=== PATIENT | male | born 1935 | race Caucasian/White ===

== ENCOUNTER 2019-03-20 16:49 | Inpatient (IN) | payer MEDICARE, SELFPAY ==
[2019-03-20 17:16] LABS: #Lymphocytes 0.6 thou/uL (1.20-3.40); #Monocytes 0.7 thou/uL (0.11-0.59); #Neutrophils 8.9 thou/uL (1.40-6.50); %Basophils 0.1 % (0.0-1.0); %Eosinophils 0.1 % (0.0-10.0); %Monocytes 6.9 % (0.0-10.0); %Neutrophils 86.9 % (42.0-75.0); Hemoglobin 13.1 g/dL (14.0-18.0); Mean Corpuscular Hemoglobin 34.4 pg (27.0-31.0); Mean Platelet Volume 7.2 fL (7.4-10.4); Platelet Count 197 thou/uL (130-400); RBC Distribution Width 13.8 % (11.5-14.5); White Blood Cell (WBC) Count 10.2 thou/uL (4.8-10.8)
[2019-03-20 17:38] LABS: ALT (SGPT) 8 U/L (8-55); AST (SGOT) 25 U/L (5-34); Albumin 3.9 g/dL (3.4-4.8); Alkaline Phosphatase 54 U/L (40-150); Anion Gap 16 mmol/L (10-20); BUN (Urea Nitrogen) 22 mg/dL (8.4-25.7); Bilirubin, Total 0.5 mg/dL (0.2-1.2); Calc. Creatinine Clearance 0 mL/min (70-130); Calcium 9.9 mg/dL (7.8-10.44); Carbon Dioxide 24 mmol/L (23-31); Chloride 103 mmol/L (98-107); Estimated GFR-MDRD 67; Globulin 3.2 g/dL (2.4-3.5); Glucose 154 mg/dL (83-110); Potassium 4.9 mmol/L (3.5-5.1); Protein, Total 7.1 g/dL (5.8-8.1); Sodium 138 mmol/L (136-145)
--- NOTE | 2019-03-20 17:51 | CT ---
BRAIN CT WITHOUT IV CONTRAST: History: Injury from a fall. FINDINGS: Minimal soft tissue swelling over the right frontal bone. There is some bilateral atrophy and chronic white matter ischemic change. No focal mass or midline shift. No intra or extraaxial hemorrhage. Radha y minimal sinus mucosal changes in the ethmoid sinus. The mastoids are clear. IMPRESSION: Minimal right frontal scalp swelling. Atrophy and chronic white matter ischemic change without mass, hemorrhage, or other acute process. POS: H
--- NOTE | 2019-03-20 17:59 | CT ---
CT CERVICAL SPINE WITHOUT CONTRAST: History: Fall. Pain. FINDINGS: No craniocervical disassociation. Appropriate alignment of the lateral masses of C1 and C2. Intact odontoid process. Visualized soft tissue neck structures, upper mediastinum and lung apices are unremarkable. Dependent atelectatic changes in the lung apices is noted. Varying degrees of central canal stenosis and neural foraminal narrowing on the basis of degenerative change. Limited evaluation due to technique. No prevertebral soft tissue swelling. Grade I anterolisthesis of C4 upon C5 likely due to degenerative change. Moderate to severe loss of d isc space height at C5-6 and C6-7. Grade I anterolisthesis at C7 upon T1, also felt to be degenerativ e change. Cervical spine vertebral body height is maintained. No fracture. IMPRESSION: 1. No fracture. 2. Spondylolisthesis and degenerative changes of the cervical spine. Evaluation is limited by techniq ue. POS: PPP
--- NOTE | 2019-03-20 18:11 | CT ---
FACIAL BONE CT SCAN WITHOUT IV CONTRAST: History: Injury from a fall. FINDINGS: There is some focal soft tissue swelling over the right frontal region of the skull. Sinus mucosal ch anges with a mucous retention cyst in the right maxillary sinus. No evidence for acute facial bone fr acture. Zygomatic arches are intact. The mandible is unremarkable. The orbits appear unremarkable. IMPRESSION: Scalp swelling over the right frontal bone. No acute facial bone fracture. Sinus mucosal changes. POS: ESTUARDO
[2019-03-20] MEDS ORDERED: Bacitracin 1 PK ONE ×2 (18:29→23:42)
[2019-03-20 20:59] LABS: Bilirubin Negative (Negative); Blood, Urine Negative (Negative); Clarity Clear (Clear); Glucose, Urine (Dipstick) Normal (Negative); Leukocyte Negative Leu/uL (Negative); Nitrite Negative (Negative); Protein, Urine (Dipstick) Negative (Neg-Trace); Urobilinogen Normal mg/dL (Less than 2)
[2019-03-20] MEDS ORDERED: Senokot S 8.6-50 MG TAB PO PRN (23:48)
--- NOTE | 2019-03-21 03:02 | HP ---
PRIMARY CARE PHYSICIAN: Dr. Orosco in [place]. CHIEF COMPLAINT: Fall. HISTORY OF PRESENT ILLNESS: Mr. Boucher is a very pleasant 84-year-old male, who reports that he was going to take a shower this morning, went into the bathroom, sat down on the toilet, when he leaned over, fell forward and struck his head on the floor. He denies any loss of consciousness, but reports that he could not get up. Reports that his family, his and his daughter, were at a birthday constitution party and were gone several hours. Daughter believes that he was probably on the bathroom floor for about an hour or hour and a half before they found him. He came in to the emergency room complaining of frontal headache, hematoma to the forehead, and some skin tears on his left hand. He denies any syncope. Denies any back pain or neck pain. The patient does report during exam today that he has been dizzy for the last several days. Daughter reports that he should be using either a walker or a cane when he ambulates, but most of the time refuses to do this and gets around by leaning on furniture. The patient has a past medical history of diabetes and asthma. Daughter says that he has been taking medicine for Parkinson's because their primary care doctor noticed he had a tremor. She believes that they have helped him. She showed me a long list of medications, none of which are in the emergency room record. PAST SURGICAL HISTORY: CABG x3, tonsillectomy, had a valve replaced at the same time as his CABG. 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 PSYCHIATRIC HISTORY: None. SOCIAL HISTORY: Lives with his and daughter. Has home health, who comes in twice a week. Denies any drug, alcohol or smoking history. ALLERGIES: NONE. DAUGHTER REPORTS THAT SHE CANNOT LIFT HIM AND NEEDS HELP FOR HIM AROUND THE HOUSE. SHE SAYS THAT SHE IS UNABLE TO GET A WHEELCHAIR AT THIS TIME OF THE NIGHT ON A THURSDAY. [place]. REPORTS THAT SHE IS OPEN TO HOME HEALTH WITH OUTPATIENT PHYSICAL THERAPY AND REHAB. EMERGENCY ROOM DID CALL THE REHAB AND THEY CAME OVER AND DID EVALUATION, BUT DUE TO INSURANCE, THEY WOULD HAVE TO PROCESS THAT BEFORE THEY COULD TAKE HIM OVER THERE. HE WILL BE ADMITTED TO THE MEDICAL FLOOR FOR FURTHER EVALUATION. REVIEW OF SYSTEMS: Reports a fall injury. Reports a contusion to his right forehead. Reports a skin tear to his left hand. Reports dizziness. Denies any syncope. Reports a mechanical fall. Reports that he has had trouble with balance for quite some time. All other systems reviewed and are negative unless mentioned in the HPI. PHYSICAL EXAMINATION: VITAL SIGNS: Blood pressure is 156/75, pulse is 90, respirations are 22, and temp is 98. CONSTITUTIONAL: The patient appears pain free. He is alert and oriented to person, place, and time. HEENT: Head; there is a hematoma and abrasion to the right side of his forehead. Eyes; eyelids are normal to inspection. Pupils are equally round and reactive to light. ENT; mucous membranes are moist. Mouth exam is normal. NECK: Normal range of motion. Trachea is midline. RESPIRATORY/CHEST: Breath sounds are clear. He has a midsternal surgical scar. Multiple bruises of various ages. CARDIOVASCULAR: Regular heart rate and rhythm. Heart sounds are normal. ABDOMEN: Nontender. Bowel sounds are heard. BACK: Normal inspection. Normal range of motion. EXTREMITIES: Upper extremity, multiple bruises of various ages in bilateral upper extremities. Radial pulses equal bilaterally. Normal range of motion. Motor strength is normal. Sensation is intact. Radial pulses are normal. Lower extremities, normal range of motion. Motor strength is normal. Pedal pulses are equal bilaterally. NEUROLOGIC: The patient is oriented to person, place, and time. Speech is normal. PERTINENT LABS: Urine is positive for ketones. Comp met panel is unremarkable. Glucose of 154. Lactic acid is 1.4. White blood cell count is 10.2, hemoglobin is 13.1, hematocrit is 39.7, and platelet count is 197. He had a facial bone CT, which showed scalp swelling over the right frontal bone. Otherwise, no facial bone fracture. Brain CT shows minimal right frontal scalp swelling, atrophy and chronic white matter ischemic change without mass, hemorrhage or other process. EKG in the emergency room shows normal sinus rhythm, beats per minute 87, has a prolonged QT 410-493. PLAN/ASSESSMENT: 1. Dizziness with some imbalance. The patient denies ever having an echocardiogram since his CABG or a carotid Doppler. We will order both. We will also order orthostatics with vital signs. PT/OT and rehab screening has also been entered. 2. Hypertension. We will trend. Restart home medications. 3. Diabetes type 2. We will order Accu-Cheks a.c. and at bedtime, order sliding scale insulin for coverage. 4. Tremor. We will restart home medications. 5. Deep venous thrombosis and gastrointestinal prophylaxis have been started. 6. Case discussed with Dr. Cerrato, who agrees with plan. Job ID: [id number]
[2019-03-21 04:37] LABS: #Lymphocytes 0.8 thou/uL (1.20-3.40); #Monocytes 0.9 thou/uL (0.11-0.59); #Neutrophils 7.3 thou/uL (1.40-6.50); %Eosinophils 0.5 % (0.0-10.0); %Lymphocytes 9.2 % (21.0-51.0); %Monocytes 9.6 % (0.0-10.0); %Neutrophils 80.8 % (42.0-75.0); Hemoglobin 12.1 g/dL (14.0-18.0); Mean Corpuscular Hemoglobin 35.4 pg (27.0-31.0); Mean Platelet Volume 7.3 fL (7.4-10.4); Platelet Count 180 thou/uL (130-400); RBC Distribution Width 13.9 % (11.5-14.5); Red Blood Cell (RBC) Count 3.42 mill/uL (4.70-6.10)
[2019-03-21 04:56] LABS: Anion Gap 13 mmol/L (10-20); BUN (Urea Nitrogen) 19 mg/dL (8.4-25.7); Calc. Creatinine Clearance 0 mL/min (70-130); Calcium 9.4 mg/dL (7.8-10.44); Carbon Dioxide 28 mmol/L (23-31); Chloride 106 mmol/L (98-107); Estimated GFR-MDRD 74; Glucose 124 mg/dL (83-110); Potassium 3.7 mmol/L (3.5-5.1); Sodium 143 mmol/L (136-145)
[2019-03-21 07:52] LABS: Magnesium 2.1 mg/dL (1.6-2.6)
--- NOTE | 2019-03-21 08:35 | ULT ---
CAROTID ULTRASOUND WITH ABARCA SCALE AND DOPPLER DUPLEX COLOR FLOW IMAGING SPECTRAL ANALYSIS PERFORMED: CLINICAL INDICATION: Dizziness. FINDINGS: Scattered plaque is moderate in degree of the carotid arteries. PEAK SYSTOLIC VELOCITY (CM/S): Right CCA 93 Left CCA 100 Right ICA 82 Left ICA 163 There is antegrade flow within the visualized bilateral vertebral arteries. IMPRESSION: 1. No hemodynamically significant stenosis of the right internal carotid artery. 2. Moderate 50-69% stenosis of the left internal carotid artery. POS: RIZWANA
[2019-03-21] MEDS ORDERED: Famotidine 20 MG TAB ONE (09:26)
[2019-03-21] MEDS ORDERED: Enoxaparin Sodium 40 MG/0.4 ML SYRINGE ONE (09:26)
[2019-03-21] MEDS: Enoxaparin Sodium 40 MG/0.4 ML SYRINGE SC SCH (09:27)
[2019-03-21] MEDS: Famotidine 20 MG TAB PO SCH ×2 (09:32→20:01)
[2019-03-21] MEDS ORDERED: Dextrose 5% in Water 1,000 ML IV PRN (09:55)
[2019-03-21] MEDS ORDERED: HumaLOG 300 UNITS/3 ML VIAL SC PRN ×2 (09:55)
[2019-03-21] MEDS ORDERED: Dextrose 50% Abboject 50 ML SYRINGE SLOW IVP PRN (09:55)
--- NOTE | 2019-03-21 10:06 | PDOC.HOSPP ---
- Subjective Subjective: Patient without any complaints at present. States he is concerned about his insulin and that his daughter will be here to administer it. He is unsure of what other medications he is on and states his daughter has his medication list. No headaches. Denies any n/v. Has not had any chest pain or sob. Feels well in himself. Daughter is not at bedside currently. - Objective Result Diagrams: 03/22/19 05:31 03/22/19 05:31 ROS - Review of Systems All systems: All other ROS were reviewed and found negative. Constitutional: denies: fever, chills, sweats, weakness, malaise Eyes: denies: pain, vision change, conjunctivae inflammation, eyelid inflammation, redness ENT: denies: ear pain, ear discharge, nose pain, nose discharge, nose congestion , mouth pain, mouth swelling, throat pain, throat swelling Respiratory: denies: cough, dry, shortness of breath, hemoptysis, SOB with excertion, pleuritic pain, sputum, wheezing Cardiovascular: denies: chest pain, palpitations, orthopnea, paroxysmal noc. dyspnea, edema, light headedness Gastrointestinal: denies: nausea, vomitting, abdominal pain, diarrhea, constipation, melena, hematochezia Genitourinary: reports: frequency (long standing) Musculoskeletal: denies: neck pain, shoulder pain, arm pain, back pain, hand pain, leg pain, foot pain Skin: denies: rash, lesions, bruising Neurological: denies: weakness, numbness, incoordination, change in speech, confusion, seizures - Medication Medications: Active Medications Generic Name Dose Route Start Last Admin Trade Name Rose PRN Reason Stop Dose Admin Enoxaparin Sodium 40 mg 03/21/19 09:00 03/21/19 09:27 Lovenox SC 40 mg 0900 LUCRECIA Administration Famotidine 20 mg 03/21/19 09:00 03/21/19 09:32 Pepcid PO 20 mg BID LUCRECIA Administration - Exam awake alert (Abrasion/hematoma to right forehead) Eye: PERRL, anicteric sclera ENT: no oropharyngeal lesions, moist mucosa Neck: supple, symmetric Heart: RRR, no murmur Respiratory: CTAB, no wheezes, no rales, no ronchi, normal chest expansion, no tachypnea Gastrointestinal: soft, non-tender, non-distended, normal bowel sounds, no palpable masses Extremities: no cyanosis, no clubbing, no edema Neurological: normal sensation to touch, no weakness, no focal deficits Musculoskeletal: normal tone, normal strength Psychiatric: normal affect (Difficulty recalling date and year. Some difficulty finding words on occasion. Unclear if this is his baseline.) Hosp A/P (1) Head injury Code(s): S09.90XA - UNSPECIFIED INJURY OF HEAD, INITIAL ENCOUNTER Status: Acute Plan: CT head, facial bones and neck without acute abnormalities. Superficial abrasion to forehead, treated by ED nurses. (2) Fall Code(s): W19.XXXA - UNSPECIFIED FALL, INITIAL ENCOUNTER Status: Acute Plan: Per patient no preceding symptoms. Does not recall what he was reaching for. Unclear if there is underlying dementia. Denies LOC. Carotid US: 50-69% Left ICA stenosis. UA negative. Awaiting Orthostatic BPs and Echo. PT/OT and rehab screening requested. (3) Diabetes mellitus Code(s): E11.9 - TYPE 2 DIABETES MELLITUS WITHOUT COMPLICATIONS Status: Chronic Plan: Per patient he is on insulin. Does not know the dose or what type. His daughter has a list of his medications, shown to PA last night however not entered/reconciled. I have initiated an ISS. I left a voicemail for her daughter to review his meds so that I can enter them into his chart and resume home meds. (4) Hypertension Code(s): I10 - ESSENTIAL (PRIMARY) HYPERTENSION Status: Chronic Qualifiers: Hypertension type: essential hypertension Qualified Code(s): I10 - Essential (primary) hypertension Plan: BP 180s systolic. No home meds documented. Continue Hydralazine prn until med list obtained. - Plan old records reviewed/req, PT/OT
[2019-03-21] MEDS: Acetaminophen 325 MG TAB PO PRN (20:01)
[2019-03-21] MEDS ORDERED: Prevnar 13-Val Conj/PF 0.5 ML SYRINGE IM ONE (21:00)
[2019-03-22] MEDS: Melatonin 3 MG TAB PO PRN ×2 (00:07→20:19)
[2019-03-22] MEDS: hydrALAZINE 20 MG/ML VIAL SLOW IVP PRN ×3 (00:16→18:44)
[2019-03-22 05:57] LABS: #Basophils 0.1 thou/uL (0.0-0.2); #Eosinphils 0.1 thou/uL (0.0-0.7); #Lymphocytes 1.3 thou/uL (1.20-3.40); #Monocytes 0.6 thou/uL (0.11-0.59); #Neutrophils 5.8 thou/uL (1.40-6.50); %Basophils 0.8 % (0.0-1.0); %Eosinophils 1.5 % (0.0-10.0); %Lymphocytes 16.6 % (21.0-51.0); %Monocytes 7.7 % (0.0-10.0); %Neutrophils 73.4 % (42.0-75.0); Hemoglobin 12.6 g/dL (14.0-18.0); Mean Corpuscular HGB CONC 32.3 g/dL (32.0-36.0); Mean Corpuscular Hemoglobin 33.6 pg (27.0-31.0); Mean Platelet Volume 7.3 fL (7.4-10.4); Platelet Count 191 thou/uL (130-400); RBC Distribution Width 13.9 % (11.5-14.5); Red Blood Cell (RBC) Count 3.74 mill/uL (4.70-6.10); White Blood Cell (WBC) Count 7.9 thou/uL (4.8-10.8)
[2019-03-22 06:19] LABS: Anion Gap 12 mmol/L (10-20); BUN (Urea Nitrogen) 19 mg/dL (8.4-25.7); Calc. Creatinine Clearance 57 mL/min (70-130); Calcium 9.3 mg/dL (7.8-10.44); Carbon Dioxide 26 mmol/L (23-31); Chloride 106 mmol/L (98-107); Estimated GFR-MDRD 67; Glucose 107 mg/dL (83-110); Potassium 3.4 mmol/L (3.5-5.1); Sodium 141 mmol/L (136-145)
[2019-03-22] MEDS: Aspirin 325 MG TAB PO SCH ×2 (09:43→20:19)
[2019-03-22] MEDS: Calcium Carbonate + Vit D 1 TAB PO SCH (09:44)
[2019-03-22] MEDS: Carbidopa/Levodopa 10-100 mg Tablet PO SCH ×4 (09:44→20:18)
[2019-03-22] MEDS: Ezetimibe 10 MG TAB PO SCH (09:44)
[2019-03-22] MEDS: metFORMIN 500 MG TAB PO SCH ×2 (09:45→18:29)
[2019-03-22] MEDS: Finasteride 5 MG TAB PO SCH (09:45)
[2019-03-22] MEDS: Enoxaparin Sodium 40 MG/0.4 ML SYRINGE SC SCH (09:46)
[2019-03-22] MEDS: Atorvastatin Calcium 20 MG TAB PO SCH (09:46)
[2019-03-22] MEDS: predniSONE 5 MG TAB PO SCH ×2 (09:46→18:29)
[2019-03-22] MEDS: Famotidine 20 MG TAB PO SCH ×2 (11:39→20:19)
[2019-03-22] MEDS: Sodium Chloride 0.45% 1,000 ML IV SCH (12:43)
[2019-03-22] MEDS ORDERED: Meclizine HCl 12.5 MG TAB PO PRN (13:21)
--- NOTE | 2019-03-22 14:01 | PDOC.HOSPP ---
- Subjective Subjective: Patient states he has been feeling dizzy since last night. Describes a "spinning" sensation. Has not been walking, per RN has been unsteady with transfer to bedside commode Patient normally walks with help of furniture at home as he refuses to use cane , as per initial H&P. Unable to reach daughter in order to confirm baseline (cognition and activity). Reports nausea this morning. No vomiting. Denies any pain. S/p Echo: 55-60%, mild MR and mild RT Carotid US: Left ICA notable for 50-69% stenosis, per Dr. King no indication for CVS review. - Objective Vital Signs & Weight: Vital Signs (12 hours) Temp Pulse Resp BP BP BP BP 03/22/19 12:21 98.1 F 70 18 03/22/19 09:25 178/94 H 03/22/19 08:12 98.4 F 76 18 03/22/19 05:00 166/91 H 03/22/19 04:06 79 192/77 H 03/22/19 04:00 97.9 F 79 18 192/77 H 164/87 H BP Pulse Ox 03/22/19 12:21 145/90 H 95 03/22/19 09:25 03/22/19 08:12 164/84 H 95 03/22/19 05:00 03/22/19 04:06 03/22/19 04:00 182/79 H 95 Weight Weight 168 lb 9.6 oz I&O: 03/21/19 03/22/19 03/23/19 06:59 06:59 06:59 Intake Total 350 Output Total 500 Balance -150 Result Diagrams: 03/22/19 05:31 03/22/19 05:31 Additional Labs: Accuchecks 03/22/19 03/22/19 03/22/19 11:30 09:57 05:12 POC Glucose 121 H 131 H 100 03/21/19 03/21/19 20:25 17:58 POC Glucose 187 H 107 ROS - Review of Systems All systems: All other ROS were reviewed and found negative. Constitutional: denies: fever, chills, sweats, weakness, malaise, other Eyes: denies: pain, vision change, conjunctivae inflammation, eyelid inflammation, redness, other ENT: denies: ear pain, ear discharge, nose pain, nose discharge, nose congestion , mouth pain, mouth swelling, throat pain, throat swelling, other Respiratory: denies: cough, dry, shortness of breath, hemoptysis, SOB with excertion, pleuritic pain, sputum, wheezing, other Cardiovascular: reports: light headedness, other (Dizziness). denies: chest pain, palpitations, orthopnea, paroxysmal noc. dyspnea, edema Gastrointestinal: reports: nausea Genitourinary: denies: dysuria, frequency, incontinence, hematuria, retention, other Musculoskeletal: denies: neck pain, shoulder pain, arm pain, back pain, hand pain, leg pain, foot pain, other Skin: denies: rash, lesions, george, bruising, other Neurological: reports: incoordination - Medication Medications: Active Medications Generic Name Dose Route Start Last Admin Trade Name Freq PRN Reason Stop Dose Admin Acetaminophen 650 mg 03/20/19 23:48 03/21/19 20:01 Tylenol PO 650 mg Q4H PRN Administration Headache/Fever/Mild Pain (1-3) Aspirin 325 mg 03/22/19 09:00 03/22/19 09:43 Aspirin PO 325 mg BID LUCRECIA Administration Atorvastatin Calcium 20 mg 03/22/19 09:00 03/22/19 09:46 Lipitor PO 20 mg DAILY LUCRECIA Administration Calcium/Vitamin D 1 tab 03/22/19 09:00 03/22/19 09:44 Caltrate 600 + Vit D PO 1 tab DAILY LUCRECIA Administration Carbidopa/Levodopa 1 tab 03/22/19 09:00 03/22/19 09:44 Sinemet 10/100 PO 1 tab QID LUCRECIA Administration Ezetimibe 10 mg 03/22/19 09:00 03/22/19 09:44 Zetia PO 10 mg DAILY LUCRECIA Administration Enoxaparin Sodium 40 mg 03/21/19 09:00 03/22/19 09:46 Lovenox SC 40 mg 0900 LUCRECIA Administration Famotidine 20 mg 03/21/19 09:00 03/22/19 11:39 Pepcid PO Not Given BID LUCRECIA Finasteride 5 mg 03/22/19 09:00 03/22/19 09:45 Proscar PO 5 mg DAILY LUCRECIA Administration Hydralazine HCl 10 mg 03/21/19 09:40 03/22/19 04:06 Apresoline SLOW IVP 10 mg Q4H PRN Administration SBP Greater Than 180 Sodium Chloride 1,000 mls @ 50 mls/hr 03/22/19 07:45 03/22/19 12:43 1/2 Normal Saline IV 1,000 mls .Q20H LUCRECIA Administration Melatonin 6 mg 03/21/19 23:54 03/22/19 00:07 Melatonin PO 6 mg HSPRN PRN Administration Insomnia Metformin HCl 1,000 mg 03/22/19 08:00 03/22/19 09:45 Glucophage PO 1,000 mg BID-WM LUCRECIA Administration Prednisone 5 mg 03/22/19 08:00 03/22/19 09:46 Prednisone PO 5 mg BID-WM LUCRECIA Administration - Exam NAD, awake alert Eye: PERRL (EOM intact, no nystagmus), anicteric sclera Neck: supple, symmetric, no JVD, no Thyromegaly, no lymphadenopathy Heart: RRR, no murmur, no gallops, no rubs, normal peripheral pulses Respiratory: CTAB, no wheezes, no rales, no ronchi, normal chest expansion, no tachypnea, normal percussion Gastrointestinal: soft, non-tender, non-distended, normal bowel sounds, no palpable masses Extremities: no cyanosis, no clubbing, no edema. negative: 1+ LE edema, 2+ LE edema, clubbing Skin: normal turgor, no lesions, no rashes Neurological: CN's grossly intact, normal sensation to touch, no weakness, no focal deficits, no new deficit Musculoskeletal: normal tone, normal strength Psychiatric: normal affect, oriented to person, oriented to place Hosp A/P (1) Head injury Code(s): S09.90XA - UNSPECIFIED INJURY OF HEAD, INITIAL ENCOUNTER Status: Acute (2) Fall Code(s): W19.XXXA - UNSPECIFIED FALL, INITIAL ENCOUNTER Status: Acute Plan: Has developed dizziness which is new since last night. CT Brain negative. It was unclear if patient has general deconditioning, or if he is at baseline or acutely deteriorated from baseline. I left a voicemail for his daughter. Will obtain MRI brain. Patient s/p rehab screening. Remains unsteady on his feet. Will try Meclizine for dizziness/nausea. Repeat Orthostatic BPs. (3) Diabetes mellitus Code(s): E11.9 - TYPE 2 DIABETES MELLITUS WITHOUT COMPLICATIONS Status: Chronic (4) Hypertension Code(s): I10 - ESSENTIAL (PRIMARY) HYPERTENSION Status: Chronic Qualifiers: Hypertension type: essential hypertension Qualified Code(s): I10 - Essential (primary) hypertension Plan: Medications confirmed and no antihypertensives mentioned. RN will re-confirm with daughter, as patient with elevated BP 190s systolic. Continue to monitor BP and continue hydralazine PRN. - Plan PT/OT, DVT proph w/SCDs Will discuss further with Dr. Aguirre. Received a call from EHR stating patient qualifies for inpatient status.
--- NOTE | 2019-03-22 15:18 | MRI ---
MRI BRAIN WITHOUT CONTRAST: Date: 03/22/19 INDICATION: Mental status change. Dizziness. FINDINGS: Mild to moderate cortical volume loss. Moderate to severe chronic ischemic white matter change noted on FLAIR sequence. No evidence of restricted diffusion. There is no evidence of infarct. No evidence of mass or edema. Intracranial internal carotid arteries and cerebral arteries show expected flow-voids. Mucosal retention cyst in the right maxillary sinus measures up to 2.0 cm. IMPRESSION: Moderate cortical volume loss. Moderate to severe chronic ischemic white matter change. No acute proc ess identified. POS: SILVIA
[2019-03-22] MEDS: Mirtazapine 15 MG TAB PO SCH (20:19)
[2019-03-23] MEDS: Acetaminophen 325 MG TAB PO PRN (04:37)
[2019-03-23 07:05] LABS: #Eosinphils 0.1 thou/uL (0.0-0.7); #Lymphocytes 0.8 thou/uL (1.20-3.40); #Monocytes 0.6 thou/uL (0.11-0.59); #Neutrophils 6.5 thou/uL (1.40-6.50); %Basophils 0.2 % (0.0-1.0); %Eosinophils 0.9 % (0.0-10.0); %Lymphocytes 10.1 % (21.0-51.0); %Monocytes 7.5 % (0.0-10.0); %Neutrophils 81.3 % (42.0-75.0); Hemoglobin 11.9 g/dL (14.0-18.0); Mean Corpuscular HGB CONC 33.8 g/dL (32.0-36.0); Mean Corpuscular Hemoglobin 34.2 pg (27.0-31.0); Mean Platelet Volume 7.4 fL (7.4-10.4); Platelet Count 179 thou/uL (130-400); RBC Distribution Width 13.5 % (11.5-14.5); Red Blood Cell (RBC) Count 3.46 mill/uL (4.70-6.10)
[2019-03-23 07:26] LABS: Anion Gap 11 mmol/L (10-20); BUN (Urea Nitrogen) 14 mg/dL (8.4-25.7); Calc. Creatinine Clearance 66 mL/min (70-130); Calcium 9.1 mg/dL (7.8-10.44); Carbon Dioxide 26 mmol/L (23-31); Chloride 102 mmol/L (98-107); Estimated GFR-MDRD 80; Glucose 129 mg/dL (83-110); Potassium 3.4 mmol/L (3.5-5.1); Sodium 136 mmol/L (136-145)
[2019-03-23] MEDS: Carbidopa/Levodopa 10-100 mg Tablet PO SCH ×4 (08:19→19:44)
[2019-03-23] MEDS: predniSONE 5 MG TAB PO SCH ×2 (08:19→18:20)
[2019-03-23] MEDS: metFORMIN 500 MG TAB PO SCH ×2 (08:19→18:20)
[2019-03-23] MEDS: Aspirin 325 MG TAB PO SCH ×2 (08:19→19:44)
[2019-03-23] MEDS: Calcium Carbonate + Vit D 1 TAB PO SCH (08:19)
[2019-03-23] MEDS: Atorvastatin Calcium 20 MG TAB PO SCH (08:20)
[2019-03-23] MEDS: Amlodipine 5 MG TAB PO SCH (08:20)
[2019-03-23] MEDS: Ezetimibe 10 MG TAB PO SCH (08:26)
[2019-03-23] MEDS: Famotidine 20 MG TAB PO SCH ×2 (08:26→19:45)
[2019-03-23] MEDS: Finasteride 5 MG TAB PO SCH (08:26)
[2019-03-23] MEDS: Enoxaparin Sodium 40 MG/0.4 ML SYRINGE SC SCH (08:26)
[2019-03-23] MEDS ORDERED: Ziprasidone 20 MG VIAL IM PRN (08:51)
--- NOTE | 2019-03-23 08:53 | PDOC.HOSPP ---
- Subjective Subjective: Patient seen and examined. No overnight events pt is agitated, restless and pulling out IV - Objective Vital Signs & Weight: Vital Signs (12 hours) Temp Pulse Resp BP BP BP BP 03/23/19 08:20 109 H 138/80 03/23/19 07:35 97.7 F 81 22 H 198/73 H 03/23/19 03:30 98.1 F 82 18 135/66 170/86 H 164/92 H BP Pulse Ox 03/23/19 08:20 03/23/19 07:35 96 03/23/19 03:30 165/92 H 96 Weight Weight 168 lb 9.6 oz I&O: 03/22/19 03/23/19 03/24/19 06:59 06:59 06:59 Intake Total 350 950 Output Total 500 500 Balance -150 450 Result Diagrams: 03/23/19 06:14 03/23/19 06:14 Additional Labs: Accuchecks 03/23/19 03/22/19 03/22/19 04:53 20:03 16:59 POC Glucose 132 H 128 H 127 H 03/22/19 03/22/19 11:30 09:57 POC Glucose 121 H 131 H Radiology Reviewed by me: Yes ROS - Review of Systems ROS unobtainable: due to mental status All systems: All other ROS were reviewed and found negative. - Medication Medications: Active Medications Generic Name Dose Route Start Last Admin Trade Name Freq PRN Reason Stop Dose Admin Acetaminophen 650 mg 03/20/19 23:48 03/23/19 04:37 Tylenol PO 650 mg Q4H PRN Administration Headache/Fever/Mild Pain (1-3) Amlodipine Besylate 5 mg 03/23/19 09:00 03/23/19 08:20 Norvasc PO 5 mg DAILY LUCRECIA Administration Aspirin 325 mg 03/22/19 09:00 03/23/19 08:19 Aspirin PO 325 mg BID LUCRECIA Administration Atorvastatin Calcium 20 mg 03/22/19 09:00 03/23/19 08:20 Lipitor PO 20 mg DAILY LUCRECIA Administration Calcium/Vitamin D 1 tab 03/22/19 09:00 03/23/19 08:19 Caltrate 600 + Vit D PO 1 tab DAILY LUCRECIA Administration Carbidopa/Levodopa 1 tab 03/22/19 09:00 03/23/19 08:19 Sinemet 10/100 PO 1 tab QID LUCRECIA Administration Ezetimibe 10 mg 03/22/19 09:00 03/23/19 08:26 Zetia PO 10 mg DAILY LUCRECIA Administration Enoxaparin Sodium 40 mg 03/21/19 09:00 03/23/19 08:26 Lovenox SC 40 mg 0900 LUCRECIA Administration Famotidine 20 mg 03/21/19 09:00 03/23/19 08:26 Pepcid PO 20 mg BID LUCRECIA Administration Finasteride 5 mg 03/22/19 09:00 03/23/19 08:26 Proscar PO 5 mg DAILY LUCRECIA Administration Hydralazine HCl 10 mg 03/21/19 09:40 03/22/19 18:44 Apresoline SLOW IVP 10 mg Q4H PRN Administration SBP Greater Than 180 Sodium Chloride 1,000 mls @ 50 mls/hr 03/22/19 07:45 03/22/19 12:43 1/2 Normal Saline IV 1,000 mls .Q20H LUCRECIA Administration Melatonin 6 mg 03/21/19 23:54 03/22/19 20:19 Melatonin PO 6 mg HSPRN PRN Administration Insomnia Metformin HCl 1,000 mg 03/22/19 08:00 03/23/19 08:19 Glucophage PO 1,000 mg BID-WM LUCRECIA Administration Mirtazapine 30 mg 03/22/19 21:00 03/22/19 20:19 Remeron PO 30 mg HS LUCRECIA Administration Prednisone 5 mg 03/22/19 08:00 03/23/19 08:19 Prednisone PO 5 mg BID-WM LUCRECIA Administration - Exam NAD, awake alert Eye: PERRL, anicteric sclera ENT: normocephalic atraumatic, no oropharyngeal lesions Neck: supple, symmetric, no JVD Heart: RRR, no murmur, no gallops Respiratory: CTAB, no wheezes, no rales, no ronchi Gastrointestinal: soft, non-tender, non-distended, normal bowel sounds Extremities: no cyanosis, no clubbing, no edema Skin: normal turgor, no lesions Neurological: no focal deficits Musculoskeletal: normal tone, normal strength Psychiatric: normal affect Hosp A/P (1) Encephalopathy acute Code(s): G93.40 - ENCEPHALOPATHY, UNSPECIFIED Status: Acute (2) Fall Code(s): W19.XXXA - UNSPECIFIED FALL, INITIAL ENCOUNTER Status: Acute (3) Head injury Code(s): S09.90XA - UNSPECIFIED INJURY OF HEAD, INITIAL ENCOUNTER Status: Acute (4) Diabetes mellitus Code(s): E11.9 - TYPE 2 DIABETES MELLITUS WITHOUT COMPLICATIONS Status: Chronic (5) Hypertension Code(s): I10 - ESSENTIAL (PRIMARY) HYPERTENSION Status: Chronic Qualifiers: Hypertension type: essential hypertension Qualified Code(s): I10 - Essential (primary) hypertension (6) Macrocytic anemia Code(s): D53.9 - NUTRITIONAL ANEMIA, UNSPECIFIED Status: Acute (7) Hypokalemia Code(s): E87.6 - HYPOKALEMIA Status: Acute - Plan old records reviewed/req, PT/OT, hospice social worker will check B12, folate, ammonia, RPR consult neurology for evaluation add Geodon as needed for agitation medication reviewed as above symptomatic treatment PT/OT and may need placement Home medication reconciled replace potassium
[2019-03-23] MEDS ORDERED: HYDROcodone/Acetaminophen 5/325 mg Tablet PO PRN (08:54)
[2019-03-23] MEDS ORDERED: Ondansetron PF 4 MG/2 ML Vial IVP PRN (08:54)
[2019-03-23] MEDS ORDERED: Bisacodyl 10 MG SUPP PR PRN (08:54)
[2019-03-23] MEDS ORDERED: Sodium Chloride 0.65% Nasal 44 ML BOT EA NARE PRN (08:54)
[2019-03-23] MEDS ORDERED: Ondansetron ODT 4 MG TAB SL PRN (08:54)
[2019-03-23] MEDS ORDERED: Acetaminophen 500 MG TAB PO PRN (08:54)
[2019-03-23] MEDS ORDERED: Temazepam 15 MG CAP PO PRN (08:54)
[2019-03-23] MEDS ORDERED: Artificial Tears 18 DROP/0.9 ML EA EYE PRN (08:54)
[2019-03-23] MEDS ORDERED: Diabetic Tussin 200 MG/10 ML UDCUP PO PRN (08:54)
[2019-03-23] MEDS ORDERED: Cepastat Lozenges 1 LOZ PO PRN (08:54)
[2019-03-23] MEDS ORDERED: Loratadine 10 MG TAB PO PRN (08:54)
[2019-03-23] MEDS ORDERED: Loperamide HCl 2 MG CAP PO PRN (08:54)
[2019-03-23] MEDS ORDERED: hydrOXYzine 25 MG TAB PO PRN (08:55)
[2019-03-23] MEDS ORDERED: ASCORBIC ACID 500 MG PO SCH (09:00)
[2019-03-23] MEDS ORDERED: Non-Formulary Item 1 EACH (Insulin Glargine,Hum.Rec.Anlog [Toujeo Solostar] 10 UNITS) SC SCH (09:00)
[2019-03-23] MEDS ORDERED: Potassium Chloride 20 MEQ TAB PO SCH (09:15)
[2019-03-23 10:11] LABS: Syphilis Antibody Nonreactive (Nonreactive); Syphilis Antibody Index 0.04 S/CO (<1.00 Non-Reactive)
[2019-03-23 10:23] LABS: Vitamin B12 Greater than 2000 pg/mL (211-911)
[2019-03-23] MEDS: Sodium Chloride 0.45% 1,000 ML IV SCH (11:37)
[2019-03-23] MEDS: Insulin Glargine 8 UNITS in Pre-Filled Syringe 1 EACH SC SCH (11:38)
[2019-03-23] MEDS: Folic Acid 1 MG TAB PO SCH (11:38)
[2019-03-23] MEDS: Cyanocobalamin (Vitamin B-12) 1,000 MCG TAB PO SCH (14:36)
--- NOTE | 2019-03-23 17:49 | CON ---
DATE OF TELEMEDICINE CONSULTATION: 03/23/2019 RN accompanying is Pedro Luis Sadler. CHIEF COMPLAINT: Confusion. HISTORY OF PRESENT ILLNESS: The patient was completely unable to give any medical history and most of this history was obtained from his chart. The patient was brought in after a fall. He was going to the bathroom, then he leaned over and fell. He had a significant amount of confusion, and apparently, his family was at a birthday libertarian, and daughter thought he was in the bathroom floor for about an hour and a half before they found him. In the ER, he was found to have hematoma of the forehead and some skin tears on the left side. The patient reported to the physicians earlier that he had dizziness, and daughter reported that he should be using a walker or a cane, but he does not ambulate using a support. The patient has Parkinson disease and is on medications. PAST MEDICAL HISTORY: Positive for diabetes, asthma, coronary artery disease, and Parkinson disease. 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 SOCIAL HISTORY: Lives with his and daughter. He has home health care twice a week. There seemed to be some caregiver burden here and they are looking at home health care or rehab therapy. ALLERGIES: NO KNOWN DRUG ALLERGIES. REVIEW OF SYSTEMS: The patient is unable to answer any questions today. He appears to be really confused. LABORATORY WORKUP: White count 8.0, hemoglobin 11.9, hematocrit 35.1, and platelet count 179. Chemistry; sodium 136, potassium 3.4, BUN 14, creatinine 0.9, chloride 102, bicarb 26, and glucose 129. His TSH 5.2. B12 greater than 2000. Folate 15 and ammonia 22. IMAGING STUDIES: His CT of the head showed minimal right frontal scalp swelling , atrophy, and chronic white matter ischemic change. PHYSICAL EXAMINATION: VITAL SIGNS: Temperature was 97.7, pulse 81, and blood pressure 198/73. GENERAL APPEARANCE: Well-built, well-nourished man with a scalp hematoma, sitting up in bed, appears to be confused and doing something. He is not very responsive to questions about orientation. CHEST: Clear vesicular breathing. CARDIOVASCULAR: S1 and S2 heard. No murmur. NEUROLOGIC: The patient is not oriented to time, place, or person. Appears very confused, but can follow simple 1-step commands. Cranial nerves; pupils 3 mm, reactive to light. Tongue midline. No atrophy. No facial asymmetry noted. Normal elevation of palate. Motor exam; bulk normal, tone normal. Strength; 4/5 in the lower extremities diffusely and 5/5 in upper extremities. Muscle groups tested; iliopsoas, hamstrings, quadriceps, ankle dorsiflexion, plantar flexion, deltoid, biceps, triceps, wrist extension and flexion, finger extension and flexion. Deep tendon reflexes 3+ throughout. Cerebellar, normal [id number] and heel-to[place] was difficult for him to perform. Sensory, unreliable. IMPRESSION: The patient is an 84-year-old elderly man with Parkinson disease, likely has had dementia at baseline. He is currently very confused, could be postconcussive as well, but there is no hematoma on CT scan. His medications were reviewed. He is on carbidopa/levodopa four times daily, and he is not on any antipsychotic at this time. RECOMMENDATIONS: Please change carbidopa/levodopa formulation to 25/250 one tablet 4 times daily. I will add Seroquel to his medication to see if we can have some improvement of his confusion. Please consult family and consider fdc placement since there seems to be some caregiver burden based on reports I have read in the chart and he seems to be full care and needs regular exercise program as well. Call me if you have any further questions. I will follow up with you tomorrow. Job ID: [id number] MTDD
[2019-03-23] MEDS: Pioglitazone HCl 45 MG TAB PO SCH (18:21)
[2019-03-23] MEDS: Mirtazapine 15 MG TAB PO SCH (19:45)
[2019-03-23] MEDS: Tamsulosin HCl 0.4 MG CAP PO SCH (19:46)
[2019-03-23] MEDS ORDERED: cloNIDine 0.1 MG TAB PO PRN (20:15)
[2019-03-24] MEDS: Cyanocobalamin (Vitamin B-12) 1,000 MCG TAB PO SCH (08:30)
[2019-03-24] MEDS: Amlodipine 5 MG TAB PO SCH (09:02)
[2019-03-24] MEDS: Ezetimibe 10 MG TAB PO SCH (09:02)
[2019-03-24] MEDS: Carbidopa/Levodopa 10-100 mg Tablet PO SCH (09:02)
[2019-03-24] MEDS: Calcium Carbonate + Vit D 1 TAB PO SCH (09:02)
[2019-03-24] MEDS: predniSONE 5 MG TAB PO SCH ×2 (09:02→18:24)
[2019-03-24] MEDS: Folic Acid 1 MG TAB PO SCH (09:02)
[2019-03-24] MEDS: Famotidine 20 MG TAB PO SCH (09:02)
[2019-03-24] MEDS: Aspirin 325 MG TAB PO SCH ×2 (09:02→21:19)
[2019-03-24] MEDS: Atorvastatin Calcium 20 MG TAB PO SCH (09:02)
[2019-03-24] MEDS: Finasteride 5 MG TAB PO SCH (09:03)
[2019-03-24] MEDS: metFORMIN 500 MG TAB PO SCH ×2 (09:07→18:24)
[2019-03-24] MEDS: Pioglitazone HCl 45 MG TAB PO SCH (09:07)
[2019-03-24] MEDS: Insulin Glargine 8 UNITS in Pre-Filled Syringe 1 EACH SC SCH (09:07)
[2019-03-24] MEDS: Enoxaparin Sodium 40 MG/0.4 ML SYRINGE SC SCH (09:08)
[2019-03-24] MEDS: Acetaminophen 325 MG TAB PO PRN (09:12)
--- NOTE | 2019-03-24 17:42 | PDOC.HOSPP ---
- Subjective Encounter Date: 03/24/19 Encounter Time: 11:00 Subjective: Patient seen and examined for Encephalopathy. Remains confused per daughter. No other issues. No overnight events - Objective Vital Signs & Weight: Vital Signs (12 hours) Temp Pulse Resp BP BP BP Pulse Ox 03/24/19 16:00 97.9 F 78 20 141/73 H 95 03/24/19 12:00 97.9 F 75 18 125/73 95 03/24/19 09:02 80 167/81 H 03/24/19 07:48 167/81 H Weight Weight 168 lb 9.6 oz I&O: 03/23/19 03/24/19 03/25/19 06:59 06:59 06:59 Intake Total 950 300 Output Total 500 Balance 450 300 Result Diagrams: 03/23/19 06:14 03/23/19 06:14 Additional Labs: Accuchecks 03/24/19 03/24/19 03/23/19 16:25 12:13 19:23 POC Glucose 122 H 153 H 98 Radiology Reviewed by me: Yes (MRI - No CVA) ROS - Review of Systems Respiratory: denies: cough, dry, shortness of breath, hemoptysis, SOB with excertion, pleuritic pain, sputum, wheezing, other Cardiovascular: denies: chest pain, palpitations, orthopnea, paroxysmal noc. dyspnea, edema, light headedness, other - Medication Medications: Active Medications Generic Name Dose Route Start Last Admin Trade Name Freq PRN Reason Stop Dose Admin Acetaminophen 650 mg 03/20/19 23:48 03/24/19 09:12 Tylenol PO 650 mg Q4H PRN Administration Headache/Fever/Mild Pain (1-3) Amlodipine Besylate 5 mg 03/23/19 09:00 03/24/19 09:02 Norvasc PO 5 mg DAILY LUCRECIA Administration Aspirin 325 mg 03/22/19 09:00 03/24/19 09:02 Aspirin PO 325 mg BID LUCRECIA Administration Calcium/Vitamin D 1 tab 03/22/19 09:00 03/24/19 09:02 Caltrate 600 + Vit D PO 1 tab DAILY LUCRECIA Administration Clonidine 0.1 mg 03/23/19 20:15 03/23/19 20:34 Catapres PO 0.1 mg Q4H PRN Administration Hypertension Finasteride 5 mg 03/22/19 09:00 03/24/19 09:03 Proscar PO 5 mg DAILY LUCRECIA Administration Folic Acid 1 mg 03/23/19 09:00 03/24/19 09:02 Folvite PO 1 mg DAILY LUCRECIA Administration Hydralazine HCl 10 mg 03/21/19 09:40 03/22/19 18:44 Apresoline SLOW IVP 10 mg Q4H PRN Administration SBP Greater Than 180 Hydroxyzine HCl 50 mg 03/23/19 08:55 03/23/19 19:46 Atarax PO 50 mg HS PRN Administration Insomnia Insulin Glargine 8 units/ 0.08 mls @ 0 mls/hr 03/23/19 09:00 03/24/19 09:07 Miscellaneous Medication SC 0.08 mls DAILY LUCRECIA Administration Melatonin 6 mg 03/21/19 23:54 03/22/19 20:19 Melatonin PO 6 mg HSPRN PRN Administration Insomnia Metformin HCl 1,000 mg 03/22/19 08:00 03/24/19 09:07 Glucophage PO 1,000 mg BID-WM LUCRECIA Administration Mirtazapine 30 mg 03/22/19 21:00 03/23/19 19:45 Remeron PO 30 mg HS LUCRECIA Administration Pioglitazone HCl 45 mg 03/23/19 09:00 03/24/19 09:07 Actos PO 45 mg DAILY LUCRECIA Administration Prednisone 5 mg 03/22/19 08:00 03/24/19 09:02 Prednisone PO 5 mg BID-WM LUCRECIA Administration Tamsulosin HCl 0.8 mg 03/23/19 21:00 03/23/19 19:46 Flomax PO 0.8 mg HS LUCRECIA Administration Thyroid 90 mg 03/23/19 06:00 03/24/19 05:36 [place] Thyroid PO Not Given 0600 LUCRECIA Ziprasidone 10 mg 03/23/19 08:51 03/23/19 12:30 Geodon IM 10 mg Q2H PRN Administration Agitation - Exam NAD Neck: supple, no JVD Heart: RRR, no gallops, no rubs Respiratory: CTAB, no wheezes, no rales Gastrointestinal: soft, non-tender, normal bowel sounds Extremities: no edema Neurological: no new deficit Hosp A/P (1) Toxic metabolic encephalopathy Code(s): G92 - TOXIC ENCEPHALOPATHY Status: Acute (2) Hypokalemia Code(s): E87.6 - HYPOKALEMIA Status: Acute (3) Recurrent falls Code(s): R29.6 - REPEATED FALLS Status: Acute (4) CAD (coronary artery disease) Code(s): I25.10 - ATHSCL HEART DISEASE OF [place] CORONARY ARTERY W/O ANG PCTRS Status: Chronic (5) DM2 (diabetes mellitus, type 2) Status: Chronic Qualifiers: Chronic kidney disease stage: stage 2 (mild) (6) Hypertension Code(s): I10 - ESSENTIAL (PRIMARY) HYPERTENSION Status: Chronic Qualifiers: Hypertension type: essential hypertension Qualified Code(s): I10 - Essential (primary) hypertension (7) other issues per previous notes - Plan plan discussed w/ family, PT/OT, DVT proph w/lovenox On ASA at home dose Reduce Lovenox to 30 mg daily DC Sinemet - I d/w Dr Yepez Started on Seroquel AM labs Cont other meds as above
[2019-03-24] MEDS: Tamsulosin HCl 0.4 MG CAP PO SCH (21:19)
[2019-03-24] MEDS: Mirtazapine 15 MG TAB PO SCH (21:20)
--- NOTE | 2019-03-24 21:32 | PRG ---
DATE OF TELEMEDICINE SERVICE: 03/24/2019 INTERVAL HISTORY: The patient's physician called me and asked that I see him today. The patient's daughter came into the room. The patient's daughter gave clear medical history. The patient has had some memory problems for several years. On days when his blood glucose is up or down, he has worsening of confusion and when he is rested, he does better. He has no formal diagnosis of dementia. He was noted to have gait problems and his physician started him on levodopa about 2 months ago. He has no diagnosis of Parkinson disease either. He gets tired quickly and he was in [place] before moving here where he had his primary neurologist and the patient's daughter would like us to get those records here. She reports she brought him here and they are still deciding about the living situation as to which home he would live in. She is his full-time caregiver at this time. Current workup, he completed his echocardiogram, which showed EF of 55% to 60%, and there was some diastolic dysfunction and his MRI of the brain was reviewed and he has chronic white matter ischemic changes with cortical volume loss, and his lab workup, no new labs today except glucose was 147. PHYSICAL EXAMINATION: VITAL SIGNS: Temperature of 97.9 today and blood pressure was 167/81, pulse 80. GENERAL APPEARANCE: Well-built, well-nourished man. He is more comfortable and awake today. NEUROLOGIC: Higher intellectual functions. He was oriented to place, not to time, and he was also oriented to person. He was able to follow commands and have an appropriate conversation. Cranial nerves, normal extraocular movements. No facial droop. Tongue midline. Motor examination, bulk normal. Tone normal. Strength 5/5 in both upper and lower extremities. IMPRESSION: The patient is 84 years old with longstanding history of memory problems, but no formal diagnosis of either dementia or Parkinson disease. 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 RECOMMENDATIONS: 1. In order to avoid worsening of mental status, I suggested to Dr. Smith that he discontinue carbidopa/levodopa for now. 2. We will increase his Seroquel to 50 mg to improve his confusion and help him sleep better at night. 3. I advised his daughter to take him to Dr. Morton, our local neurologist for further assessment of his dementia. 4. I suggested that the daughter think about placement such as living arrangements in a dementia center rather than her having to be the sole caregiver at home and if that is an option, he will think about all these and discuss with Dr. Smith tomorrow. I will see him as needed. Job ID: [id number] LEONEL
[2019-03-25] MEDS: Aspirin 325 MG TAB PO SCH ×2 (10:37→23:08)
[2019-03-25] MEDS: metFORMIN 500 MG TAB PO SCH ×2 (10:37→17:46)
[2019-03-25] MEDS: Calcium Carbonate + Vit D 1 TAB PO SCH (10:37)
[2019-03-25] MEDS: Multivit, Therapeutic 1 TAB PO SCH (10:38)
[2019-03-25] MEDS: Finasteride 5 MG TAB PO SCH (10:38)
[2019-03-25] MEDS: Folic Acid 1 MG TAB PO SCH (10:38)
[2019-03-25] MEDS: Pioglitazone HCl 45 MG TAB PO SCH (10:38)
[2019-03-25] MEDS: Amlodipine 5 MG TAB PO SCH (10:38)
[2019-03-25] MEDS: predniSONE 5 MG TAB PO SCH ×2 (10:38→17:46)
[2019-03-25] MEDS: Insulin Glargine 8 UNITS in Pre-Filled Syringe 1 EACH SC SCH (10:39)
[2019-03-25] MEDS: Enoxaparin Sodium 30 MG/0.3 ML SYRINGE SC SCH (10:40)
--- NOTE | 2019-03-25 10:53 | PDOC.HOSPP ---
- Subjective Encounter Date: 03/25/19 Encounter Time: 10:50 Subjective: Patient seen and examined for Encephalopathy. Slept well last night per RN. No new complaints. No overnight events - Objective Vital Signs & Weight: Vital Signs (12 hours) Temp Pulse Resp BP Pulse Ox 03/25/19 08:00 98.1 F 74 18 165/89 H 94 L Weight Weight 168 lb 9.6 oz I&O: 03/24/19 03/25/19 03/26/19 06:59 06:59 06:59 Intake Total 300 Balance 300 Result Diagrams: 03/23/19 06:14 03/23/19 06:14 Additional Labs: Accuchecks 03/25/19 03/24/19 03/24/19 04:08 19:14 16:25 POC Glucose 104 147 H 122 H 03/24/19 12:13 POC Glucose 153 H ROS - Review of Systems Respiratory: denies: cough, dry, shortness of breath, hemoptysis, SOB with excertion, pleuritic pain, sputum, wheezing, other Cardiovascular: denies: chest pain, palpitations, orthopnea, paroxysmal noc. dyspnea, edema, light headedness, other - Medication Medications: Active Medications Generic Name Dose Route Start Last Admin Trade Name Freq PRN Reason Stop Dose Admin Acetaminophen 650 mg 03/20/19 23:48 03/24/19 09:12 Tylenol PO 650 mg Q4H PRN Administration Headache/Fever/Mild Pain (1-3) Amlodipine Besylate 5 mg 03/23/19 09:00 03/24/19 09:02 Norvasc PO 5 mg DAILY LUCRECIA Administration Aspirin 325 mg 03/22/19 09:00 03/24/19 21:19 Aspirin PO 325 mg BID LUCRECIA Administration Calcium/Vitamin D 1 tab 03/22/19 09:00 03/24/19 09:02 Caltrate 600 + Vit D PO 1 tab DAILY LUCRECIA Administration Clonidine 0.1 mg 03/23/19 20:15 03/23/19 20:34 Catapres PO 0.1 mg Q4H PRN Administration Hypertension Finasteride 5 mg 03/22/19 09:00 03/24/19 09:03 Proscar PO 5 mg DAILY LUCRECIA Administration Folic Acid 1 mg 03/23/19 09:00 03/24/19 09:02 Folvite PO 1 mg DAILY LUCRECIA Administration Hydralazine HCl 10 mg 03/21/19 09:40 03/22/19 18:44 Apresoline SLOW IVP 10 mg Q4H PRN Administration SBP Greater Than 180 Insulin Glargine 8 units/ 0.08 mls @ 0 mls/hr 03/23/19 09:00 03/24/19 09:07 Miscellaneous Medication SC 0.08 mls DAILY LUCRECIA Administration Melatonin 6 mg 03/21/19 23:54 03/22/19 20:19 Melatonin PO 6 mg HSPRN PRN Administration Insomnia Metformin HCl 1,000 mg 03/22/19 08:00 03/24/19 18:24 Glucophage PO 1,000 mg BID-WM LUCRECIA Administration Mirtazapine 30 mg 03/22/19 21:00 03/24/19 21:20 Remeron PO 30 mg HS LUCRECIA Administration Pioglitazone HCl 45 mg 03/23/19 09:00 03/24/19 09:07 Actos PO 45 mg DAILY LUCRECIA Administration Prednisone 5 mg 03/22/19 08:00 03/24/19 18:24 Prednisone PO 5 mg BID-WM LUCRECIA Administration Quetiapine Fumarate 50 mg 03/24/19 21:00 03/24/19 21:20 Seroquel PO 50 mg HS LUCRECIA Administration Tamsulosin HCl 0.8 mg 03/23/19 21:00 03/24/19 21:19 Flomax PO 0.8 mg HS LUCRECIA Administration Thyroid 90 mg 03/23/19 06:00 03/25/19 05:10 [place] Thyroid PO 90 mg 0600 LUCRECIA Administration Ziprasidone 10 mg 03/23/19 08:51 03/23/19 12:30 Geodon IM 10 mg Q2H PRN Administration Agitation - Exam NAD Heart: RRR, no gallops, no rubs Respiratory: CTAB, no wheezes, no rales Gastrointestinal: soft, non-tender, normal bowel sounds Extremities: no edema Neurological: no new deficit Psychiatric: oriented to person, oriented to place Hosp A/P (1) Toxic metabolic encephalopathy Code(s): G92 - TOXIC ENCEPHALOPATHY Status: Acute (2) Hypokalemia Code(s): E87.6 - HYPOKALEMIA Status: Acute (3) Recurrent falls Code(s): R29.6 - REPEATED FALLS Status: Acute (4) CAD (coronary artery disease) Code(s): I25.10 - ATHSCL HEART DISEASE OF [place] CORONARY ARTERY W/O ANG PCTRS Status: Chronic (5) DM2 (diabetes mellitus, type 2) Status: Chronic Qualifiers: Chronic kidney disease stage: stage 2 (mild) (6) Hypertension Code(s): I10 - ESSENTIAL (PRIMARY) HYPERTENSION Status: Chronic Qualifiers: Hypertension type: essential hypertension Qualified Code(s): I10 - Essential (primary) hypertension (7) other issues per previous notes - Plan DVT proph w/lovenox Cont Seroquel 50mg HS per Neuro Sinemet dced Cont ASA AM labs Cont sliding scale with Metformin Cont Remeron Cont other meds as above DC planning - SNF Eval in progress
--- NOTE | 2019-03-25 13:25 | PDOC.PALCO ---
Palliative Care Consult - Consult Details Requesting Physician: Dr martinez Reason for Consult: goals of care Family Members Present: daughter Yoko - Pertinent HPI Patient was a long time resident of [place], who recently moved in with his daughter and exwife in [place] secondary to increase need for assistance related to disease progression. Patient fell in the restroom and was unable to get up with no one home. Daughter estimates patient was on the floor an hour and half prior to being found. He was transported to the emergency room via EMS with complaints of frontal headache, hematoma to the forehead, and skin tears related to thin fragile skin. Admitted for further observation. Patient has had an increase in need for use of walker, but forgets. Also history of insomnia as per daughter and at times she will give "two" doses of the night time medication. Daughter reports that patient has received home health services twice a week. - Pertinent PMH Parkinsons, diabetes, evidence of dementia - Social History Smoking Status: Never smoker Smoking: no tobacco exposure Alcohol Use: none Drug Use History: none Living Situation: other (Recently moved in with daughter and exwife at a home in [place], previously lived independtly in [place]) - Medications MAR Reviewed: Yes - Allergies Allergies/Adverse Reactions: Allergies Allergy/AdvReac Type Severity Reaction Status Date / Time No Known Drug Allergies Allergy Verified 03/21/19 03:13 - Subjective Initial visit with patient daughter. Patient was sleeping, however easily arousable. Oriented x3, however when asked what he did for a career in [place] he could not recall. Slow to respond to questions. Pallor, extensive bruising to left forehead, ocular bed, arms, abdomen. ROS: Patient states he is sleepy, review of all other systems are negative. - Objective Vital Signs: Vital Signs - Most Recent Temp Pulse Resp BP Pulse Ox 97.4 F L 84 22 H 118/75 96 03/25/19 12:00 03/25/19 12:00 03/25/19 12:00 03/25/19 12:00 03/25/19 12:00 Palliative Performance Scale: 30 - Physical Exam Constitutional: NAD, confusion Deviation from normal: Pallor HEENT: moist MMs, EOMI Respiratory: no wheezing, clear to auscultation bilateral, unlabored breathing Cardiovascular: RRR Gastrointestinal: soft, positive bowel sounds Deviation from normal: mild tenderness with palpation, non specific Musculoskeletal: no edema, pulses present Deviation from normal: missing fingers on right hand, arthritic changes to joints to hands/feet Neurological: normal sensation, moves all 4 limbs Psychiatric: normal affect, A&O x 3 Deviation from normal: Delaed memory recall with gaps in memory Skin: no rash Deviation from normal: Fair turgor, Thin fragile skin. Brusing in various stages of healing - Problem List (1) Palliative care encounter Code(s): Z51.5 - ENCOUNTER FOR PALLIATIVE CARE Current Visit: Yes Status: Acute (2) Physical deconditioning Code(s): R53.81 - OTHER MALAISE Current Visit: Yes Status: Acute (3) Recurrent falls Code(s): R29.6 - REPEATED FALLS Current Visit: Yes Status: Acute - Plan/Recommendations Plan: Zahra Reeder RNbusiness banking representative present for initial consultation. Discussed patient history with daughter Yoko at length. Patient assessed, and goals of care discussion initiated. Daughter expressed difficulty in caring for her father as he is " weight" and she can not lift him. Further identified home is cluttered and she and her mom "need to get work done" to have optimal living environment for patient. *Will follow up to assist patient is goals related to his disease process and chronic health. He has expressed in the past he did not want to go to a "[place] [facility] [place] facility' however daughter understands this may be necessary initially. *Assist in patient finding autonomy and dignity as his health status changes. *Support family and assist as needed to identify resources for discharge to promote safety in home environment for patient. [80] minutes spent on this encounter with >50% of the time in counseling and coordination of care. Thank you for this very appropriate consult.
[2019-03-25] MEDS: Tamsulosin HCl 0.4 MG CAP PO SCH (23:08)
[2019-03-25] MEDS: Mirtazapine 15 MG TAB PO SCH (23:09)
[2019-03-26 05:52] LABS: #Eosinphils 0.1 thou/uL (0.0-0.7); #Lymphocytes 1.4 thou/uL (1.20-3.40); #Monocytes 0.6 thou/uL (0.11-0.59); #Neutrophils 6.1 thou/uL (1.40-6.50); %Basophils 0.1 % (0.0-1.0); %Eosinophils 0.8 % (0.0-10.0); %Monocytes 7.6 % (0.0-10.0); %Neutrophils 74.4 % (42.0-75.0); Hemoglobin 12.5 g/dL (14.0-18.0); Mean Corpuscular HGB CONC 34.2 g/dL (32.0-36.0); Mean Corpuscular Hemoglobin 35.1 pg (27.0-31.0); Mean Platelet Volume 7.3 fL (7.4-10.4); Platelet Count 192 thou/uL (130-400); RBC Distribution Width 13.2 % (11.5-14.5); Red Blood Cell (RBC) Count 3.55 mill/uL (4.70-6.10); White Blood Cell (WBC) Count 8.2 thou/uL (4.8-10.8)
[2019-03-26 06:10] LABS: Anion Gap 14 mmol/L (10-20); BUN (Urea Nitrogen) 22 mg/dL (8.4-25.7); Calc. Creatinine Clearance 61 mL/min (70-130); Calcium 9.3 mg/dL (7.8-10.44); Carbon Dioxide 27 mmol/L (23-31); Chloride 103 mmol/L (98-107); Estimated GFR-MDRD 74; Glucose 88 mg/dL (83-110); Magnesium 1.6 mg/dL (1.6-2.6); Potassium 3.6 mmol/L (3.5-5.1); Sodium 140 mmol/L (136-145)
[2019-03-26] MEDS ORDERED: Magnesium 2 GM/50 ML 2 GM in Premix Bag 1 BAG IVPB SCH (08:45)
[2019-03-26] MEDS ORDERED: Amlodipine 5 MG TAB PO SCH (09:00)
[2019-03-26] MEDS: Aspirin 325 MG TAB PO SCH ×2 (09:26→20:46)
[2019-03-26] MEDS: Calcium Carbonate + Vit D 1 TAB PO SCH (09:26)
[2019-03-26] MEDS: Finasteride 5 MG TAB PO SCH (09:27)
[2019-03-26] MEDS: metFORMIN 500 MG TAB PO SCH ×2 (09:27→17:04)
[2019-03-26] MEDS: Multivit, Therapeutic 1 TAB PO SCH (09:28)
[2019-03-26] MEDS: Insulin Glargine 8 UNITS in Pre-Filled Syringe 1 EACH SC SCH (09:29)
[2019-03-26] MEDS: Folic Acid 1 MG TAB PO SCH (09:29)
[2019-03-26] MEDS: Pioglitazone HCl 45 MG TAB PO SCH (09:29)
[2019-03-26] MEDS: predniSONE 5 MG TAB PO SCH ×2 (09:29→17:04)
[2019-03-26] MEDS: Enoxaparin Sodium 30 MG/0.3 ML SYRINGE SC SCH (09:30)
--- NOTE | 2019-03-26 11:58 | PDOC.HOSPP ---
- Subjective Encounter Date: 03/26/19 Encounter Time: 11:00 Subjective: Patient seen and examined for Encephalopathy. Mentation slowly improving. No fever/chills. No new complaints. No overnight events - Objective Vital Signs & Weight: Vital Signs (12 hours) Temp Pulse Resp BP BP Pulse Ox 03/26/19 09:28 82 03/26/19 08:00 98.0 F 82 18 178/89 H 94 L 03/26/19 04:00 98.1 F 87 18 136/86 96 03/26/19 00:00 98.2 F 84 16 153/91 H 97 Weight Weight 168 lb 9.6 oz Result Diagrams: 03/26/19 05:14 03/26/19 05:14 Additional Labs: Accuchecks 03/26/19 03/26/19 03/25/19 11:19 04:41 20:18 POC Glucose 134 H 92 111 H 03/25/19 03/25/19 16:00 12:21 POC Glucose 127 H 161 H ROS - Review of Systems ROS unobtainable: due to mental status - Medication Medications: Active Medications Generic Name Dose Route Start Last Admin Trade Name Freq PRN Reason Stop Dose Admin Acetaminophen 650 mg 03/20/19 23:48 03/24/19 09:12 Tylenol PO 650 mg Q4H PRN Administration Headache/Fever/Mild Pain (1-3) Amlodipine Besylate 2.5 mg 03/26/19 09:00 03/26/19 09:28 Norvasc PO 2.5 mg DAILY LUCRECIA Administration Aspirin 325 mg 03/22/19 09:00 03/26/19 09:26 Aspirin PO 325 mg BID LUCRECIA Administration Calcium/Vitamin D 1 tab 03/22/19 09:00 03/26/19 09:26 Caltrate 600 + Vit D PO 1 tab DAILY LUCRECIA Administration Clonidine 0.1 mg 03/23/19 20:15 03/23/19 20:34 Catapres PO 0.1 mg Q4H PRN Administration Hypertension Enoxaparin Sodium 30 mg 03/25/19 09:00 03/26/19 09:30 Lovenox SC 30 mg 0900 LUCRECIA Administration Finasteride 5 mg 03/22/19 09:00 03/26/19 09:27 Proscar PO 5 mg DAILY LUCRECIA Administration Folic Acid 1 mg 03/23/19 09:00 03/26/19 09:29 Folvite PO 1 mg DAILY LUCRECIA Administration Hydralazine HCl 10 mg 03/21/19 09:40 03/22/19 18:44 Apresoline SLOW IVP 10 mg Q4H PRN Administration SBP Greater Than 180 Insulin Glargine 8 units/ 0.08 mls @ 0 mls/hr 03/23/19 09:00 03/26/19 09:29 Miscellaneous Medication SC 0.08 mls DAILY LUCRECIA Administration Melatonin 6 mg 03/21/19 23:54 03/22/19 20:19 Melatonin PO 6 mg HSPRN PRN Administration Insomnia Metformin HCl 1,000 mg 03/22/19 08:00 03/26/19 09:27 Glucophage PO 1,000 mg BID-WM LUCRECIA Administration Mirtazapine 30 mg 03/22/19 21:00 03/25/19 23:09 Remeron PO 30 mg HS LUCRECIA Administration Multivitamins 1 tab 03/25/19 09:00 03/26/19 09:28 Theragran PO 1 tab DAILY LUCRECIA Administration Pantoprazole Sodium 40 mg 03/25/19 09:00 03/26/19 09:28 Protonix PO 40 mg DAILY LUCRECIA Administration Pioglitazone HCl 45 mg 03/23/19 09:00 03/26/19 09:29 Actos PO 45 mg DAILY LUCRECIA Administration Prednisone 5 mg 03/22/19 08:00 03/26/19 09:29 Prednisone PO 5 mg BID-WM LUCRECIA Administration Quetiapine Fumarate 50 mg 03/24/19 21:00 03/25/19 23:08 Seroquel PO 50 mg HS LUCRECIA Administration Tamsulosin HCl 0.8 mg 03/23/19 21:00 03/25/19 23:08 Flomax PO 0.8 mg HS LUCRECIA Administration Thyroid 90 mg 03/23/19 06:00 03/26/19 07:34 [place] Thyroid PO 90 mg 0600 LUCRECIA Administration Ziprasidone 10 mg 03/23/19 08:51 03/23/19 12:30 Geodon IM 10 mg Q2H PRN Administration Agitation - Exam NAD Neck: supple, no JVD Heart: RRR, no gallops Respiratory: CTAB, no wheezes, no ronchi Gastrointestinal: soft, non-tender, normal bowel sounds, no rigidity Neurological: no new deficit Hosp A/P (1) Toxic metabolic encephalopathy Code(s): G92 - TOXIC ENCEPHALOPATHY Status: Acute (2) Recurrent falls Code(s): R29.6 - REPEATED FALLS Status: Acute (3) Hypokalemia Code(s): E87.6 - HYPOKALEMIA Status: Acute (4) CAD (coronary artery disease) Code(s): I25.10 - ATHSCL HEART DISEASE OF [place] CORONARY ARTERY W/O ANG PCTRS Status: Chronic (5) DM2 (diabetes mellitus, type 2) Status: Chronic Qualifiers: Chronic kidney disease stage: stage 2 (mild) (6) Hypertension Code(s): I10 - ESSENTIAL (PRIMARY) HYPERTENSION Status: Chronic Qualifiers: Hypertension type: essential hypertension Qualified Code(s): I10 - Essential (primary) hypertension (7) other issues per previous notes - Plan PT/OT, DVT proph w/lovenox, DVT proph w/SCDs on Seroquel 50mg HS per Neuro - sleeping better per RN Sinemet dced this admission Cont sliding scale with Metformin Cont Remeron HS Cont other meds as above Increase Amlodipine 2.5 to BID Await SNF Eval
[2019-03-26] MEDS ORDERED: Acetaminophen 325 MG TAB PO PRN (12:23)
[2019-03-26] MEDS: Mirtazapine 15 MG TAB PO SCH (20:45)
[2019-03-26] MEDS: Magnesium Chloride 64 MG TAB PO SCH (20:45)
[2019-03-26] MEDS: Amlodipine 5 MG TAB PO SCH (20:55)
[2019-03-26] MEDS: Tamsulosin HCl 0.4 MG CAP PO SCH (20:59)
[2019-03-27] MEDS: Melatonin 3 MG TAB PO PRN (01:12)
[2019-03-27] MEDS ORDERED: Haloperidol Lactate 5 MG/ML VIAL IM SCH (06:30)
[2019-03-27] MEDS: Calcium Carbonate + Vit D 1 TAB PO SCH (09:30)
[2019-03-27] MEDS: predniSONE 5 MG TAB PO SCH ×2 (09:30→16:17)
[2019-03-27] MEDS: Aspirin 325 MG TAB PO SCH ×2 (09:30→20:16)
[2019-03-27] MEDS: Amlodipine 5 MG TAB PO SCH ×2 (09:30→20:17)
[2019-03-27] MEDS: Enoxaparin Sodium 40 MG/0.4 ML SYRINGE SC SCH (09:30)
[2019-03-27] MEDS: metFORMIN 500 MG TAB PO SCH ×2 (09:30→16:16)
[2019-03-27] MEDS: Folic Acid 1 MG TAB PO SCH (09:31)
[2019-03-27] MEDS: Magnesium Chloride 64 MG TAB PO SCH ×2 (09:31→20:17)
[2019-03-27] MEDS: Multivit, Therapeutic 1 TAB PO SCH (09:31)
[2019-03-27] MEDS: Pioglitazone HCl 45 MG TAB PO SCH (09:31)
[2019-03-27] MEDS: Finasteride 5 MG TAB PO SCH (09:31)
--- NOTE | 2019-03-27 11:39 | PDOC.HOSPP ---
- Subjective Encounter Date: 03/27/19 Encounter Time: 10:30 Subjective: Patient seen and examined for Encephalopathy. Appears comfortable. No CP/SOB or palpitations. No new complaints. Overnight events noted - received Haldol. - Objective Vital Signs & Weight: Vital Signs (12 hours) Temp Pulse Resp BP BP Pulse Ox 03/27/19 09:30 82 03/27/19 07:32 98.2 F 82 16 100/70 03/27/19 04:00 142/93 H 03/27/19 00:36 98.2 F 82 16 172/93 H 94 L Weight Weight 168 lb 9.6 oz Result Diagrams: 03/26/19 05:14 03/26/19 05:14 Additional Labs: Accuchecks 03/26/19 03/26/19 03/26/19 20:16 16:16 11:19 POC Glucose 146 H 129 H 134 H ROS - Review of Systems Cardiovascular: denies: chest pain, palpitations, orthopnea, paroxysmal noc. dyspnea, edema, light headedness, other Gastrointestinal: denies: nausea, vomitting, abdominal pain, diarrhea, constipation, melena, hematochezia, other Genitourinary: denies: dysuria, frequency, incontinence, hematuria, retention, other - Medication Medications: Active Medications Generic Name Dose Route Start Last Admin Trade Name Freq PRN Reason Stop Dose Admin Amlodipine Besylate 2.5 mg 03/26/19 21:00 03/27/19 09:30 Norvasc PO Not Given BID [facility] Aspirin 325 mg 03/22/19 09:00 03/27/19 09:30 Aspirin PO Not Given BID [facility] Calcium/Vitamin D 1 tab 03/22/19 09:00 03/27/19 09:30 Caltrate 600 + Vit D PO Not Given DAILY [facility] Clonidine 0.1 mg 03/23/19 20:15 03/23/19 20:34 Catapres PO 0.1 mg Q4H PRN Administration Hypertension Enoxaparin Sodium 40 mg 03/27/19 09:00 03/27/19 09:30 Lovenox SC Not Given 0900 [facility] Finasteride 5 mg 03/22/19 09:00 03/27/19 09:31 Proscar PO Not Given DAILY [facility] Folic Acid 1 mg 03/23/19 09:00 03/27/19 09:31 Folvite PO Not Given DAILY [facility] Hydralazine HCl 10 mg 03/21/19 09:40 03/22/19 18:44 Apresoline SLOW IVP 10 mg Q4H PRN Administration SBP Greater Than 180 Insulin Glargine 8 units/ 0.08 mls @ 0 mls/hr 03/23/19 09:00 03/26/19 09:29 Miscellaneous Medication SC 0.08 mls DAILY [facility] Administration Magnesium Chloride 64 mg 03/26/19 21:00 03/27/19 09:31 Slow-Mag PO Not Given BID [facility] Melatonin 6 mg 03/21/19 23:54 03/27/19 01:12 Melatonin PO 6 mg HSPRN PRN Administration Insomnia Metformin HCl 1,000 mg 03/22/19 08:00 03/27/19 09:30 Glucophage PO Not Given BID-WM [facility] Mirtazapine 30 mg 03/22/19 21:00 03/26/19 20:45 Remeron PO 30 mg HS [facility] Administration Multivitamins 1 tab 03/25/19 09:00 03/27/19 09:31 Theragran PO Not Given DAILY [facility] Pantoprazole Sodium 40 mg 03/25/19 09:00 03/27/19 09:31 Protonix PO Not Given DAILY [facility] Pioglitazone HCl 45 mg 03/23/19 09:00 03/27/19 09:31 Actos PO Not Given DAILY [facility] Prednisone 5 mg 03/22/19 08:00 03/27/19 09:30 Prednisone PO Not Given BID-WM [facility] Quetiapine Fumarate 50 mg 03/24/19 21:00 03/26/19 20:44 Seroquel PO 50 mg HS [facility] Administration Tamsulosin HCl 0.8 mg 03/23/19 21:00 03/26/19 20:59 Flomax PO 0.8 mg HS [facility] Administration Thyroid 90 mg 03/23/19 06:00 03/27/19 05:51 [place] Thyroid PO 90 mg 0600 [facility] Administration - Exam NAD Heart: RRR, no rubs Respiratory: CTAB, no ronchi Gastrointestinal: soft, non-tender Extremities: no edema Neurological: no new deficit Hosp A/P (1) Toxic metabolic encephalopathy Code(s): G92 - TOXIC ENCEPHALOPATHY Status: Acute (2) Recurrent falls Code(s): R29.6 - REPEATED FALLS Status: Acute (3) Hypokalemia Code(s): E87.6 - HYPOKALEMIA Status: Acute (4) CAD (coronary artery disease) Code(s): I25.10 - ATHSCL HEART DISEASE OF [place] CORONARY ARTERY W/O ANG PCTRS Status: Chronic (5) DM2 (diabetes mellitus, type 2) Status: Chronic Qualifiers: Chronic kidney disease stage: stage 2 (mild) (6) Hypertension Code(s): I10 - ESSENTIAL (PRIMARY) HYPERTENSION Status: Chronic Qualifiers: Hypertension type: essential hypertension Qualified Code(s): I10 - Essential (primary) hypertension (7) other issues per previous notes - Plan plan discussed w/ family (daughter) I d/w Dr Yepez. She recommended to add Seroquel 25 mg daily and Restoril 7.5 PRN HS I d/w Pharmacy - Restoril comes in capsule of 15 mg. Will change to Ativan 0.25 mg HS PRN instead. Cont Seroquel 50mg HS per Neuro Cont Remeron HS Sinemet dced this admission He is on chronic steroids for Prostate cancer per daughter Will request records Cont sliding scale with Metformin Cont Amlodipine 2.5 to BID Cont other meds as above Await SNF Eval
[2019-03-27] MEDS ORDERED: Temazepam 15 MG CAP PO PRN ×2 (11:41→11:54)
[2019-03-27] MEDS ORDERED: Lorazepam 0.5 MG TAB PO PRN (12:03)
[2019-03-27] MEDS: Insulin Glargine 8 UNITS in Pre-Filled Syringe 1 EACH SC SCH (14:57)
[2019-03-27] MEDS: Mirtazapine 15 MG TAB PO SCH (20:16)
[2019-03-27] MEDS: Tamsulosin HCl 0.4 MG CAP PO SCH (20:16)
[2019-03-28] MEDS: Insulin Glargine 8 UNITS in Pre-Filled Syringe 1 EACH SC SCH (08:18)
[2019-03-28] MEDS: Aspirin 325 MG TAB PO SCH ×2 (08:19→21:34)
[2019-03-28] MEDS: predniSONE 5 MG TAB PO SCH ×2 (08:19→16:54)
[2019-03-28] MEDS: Folic Acid 1 MG TAB PO SCH (08:19)
[2019-03-28] MEDS: Multivit, Therapeutic 1 TAB PO SCH (08:19)
[2019-03-28] MEDS: Calcium Carbonate + Vit D 1 TAB PO SCH (08:19)
[2019-03-28] MEDS: Finasteride 5 MG TAB PO SCH (08:19)
[2019-03-28] MEDS: metFORMIN 500 MG TAB PO SCH ×2 (08:19→16:54)
[2019-03-28] MEDS: Amlodipine 5 MG TAB PO SCH (08:20)
[2019-03-28] MEDS: Magnesium Chloride 64 MG TAB PO SCH ×2 (08:20→21:35)
[2019-03-28] MEDS: Pioglitazone HCl 45 MG TAB PO SCH (08:20)
[2019-03-28] MEDS: Enoxaparin Sodium 40 MG/0.4 ML SYRINGE SC SCH (08:32)
[2019-03-28] MEDS ORDERED: cloNIDine 0.1 MG TAB PO PRN (15:48)
[2019-03-28] MEDS ORDERED: hydrALAZINE 20 MG/ML VIAL SLOW IVP PRN (15:48)
--- NOTE | 2019-03-28 15:52 | PDOC.HOSPP ---
- Subjective Encounter Date: 03/28/19 (f/u encephalopathy) Encounter Time: 15:49 Subjective: Pt's daughter reports no significant change today. Pt denies any n/v/abd pain/ cp/dyspnea or other concerns - Objective Vital Signs & Weight: Vital Signs (12 hours) Temp Pulse Resp BP Pulse Ox 03/28/19 11:54 98.1 F 86 20 122/78 95 03/28/19 08:20 85 03/28/19 08:00 98.1 F 77 18 182/101 H 96 Weight Weight 168 lb 9.6 oz I&O: 03/27/19 03/28/19 03/29/19 06:59 06:59 06:59 Intake Total 600 Output Total 550 Balance -550 600 Result Diagrams: 03/26/19 05:14 03/26/19 05:14 Additional Labs: Accuchecks 03/28/19 03/28/19 03/27/19 11:33 04:30 19:57 POC Glucose 140 H 116 H 129 H 03/27/19 15:59 POC Glucose 242 H ROS - Medication Medications: Active Medications Generic Name Dose Route Start Last Admin Trade Name Freq PRN Reason Stop Dose Admin Amlodipine Besylate 2.5 mg 03/26/19 21:00 03/28/19 08:20 Norvasc PO 2.5 mg BID [facility] Administration Aspirin 325 mg 03/22/19 09:00 03/28/19 08:19 Aspirin PO 325 mg BID [facility] Administration Calcium/Vitamin D 1 tab 03/22/19 09:00 03/28/19 08:19 Caltrate 600 + Vit D PO 1 tab DAILY [facility] Administration Clonidine 0.1 mg 03/23/19 20:15 03/23/19 20:34 Catapres PO 0.1 mg Q4H PRN Administration Hypertension Enoxaparin Sodium 40 mg 03/27/19 09:00 03/28/19 08:32 Lovenox SC 40 mg 0900 [facility] Administration Finasteride 5 mg 03/22/19 09:00 03/28/19 08:19 Proscar PO 5 mg DAILY [facility] Administration Folic Acid 1 mg 03/23/19 09:00 03/28/19 08:19 Folvite PO 1 mg DAILY [facility] Administration Hydralazine HCl 10 mg 03/21/19 09:40 03/22/19 18:44 Apresoline SLOW IVP 10 mg Q4H PRN Administration SBP Greater Than 180 Insulin Glargine 8 units/ 0.08 mls @ 0 mls/hr 03/23/19 09:00 03/28/19 08:18 Miscellaneous Medication SC 0.08 mls DAILY [facility] Administration Lorazepam 0.25 mg 03/27/19 12:03 03/27/19 20:17 Ativan PO 0.25 mg HSPRN PRN Administration Insomnia Magnesium Chloride 64 mg 03/26/19 21:00 03/28/19 08:20 Slow-Mag PO 64 mg BID [facility] Administration Melatonin 6 mg 03/21/19 23:54 03/27/19 01:12 Melatonin PO 6 mg HSPRN PRN Administration Insomnia Metformin HCl 1,000 mg 03/22/19 08:00 03/28/19 08:19 Glucophage PO 1,000 mg BID-WM [facility] Administration Mirtazapine 30 mg 03/22/19 21:00 03/27/19 20:16 Remeron PO 30 mg HS [facility] Administration Multivitamins 1 tab 03/25/19 09:00 03/28/19 08:19 Theragran PO 1 tab DAILY [facility] Administration Pantoprazole Sodium 40 mg 03/25/19 09:00 03/28/19 08:20 Protonix PO 40 mg DAILY [facility] Administration Pioglitazone HCl 45 mg 03/23/19 09:00 03/28/19 08:20 Actos PO 45 mg DAILY [facility] Administration Prednisone 5 mg 03/22/19 08:00 03/28/19 08:19 Prednisone PO 5 mg BID-WM [facility] Administration Quetiapine Fumarate 50 mg 03/24/19 21:00 03/27/19 20:17 Seroquel PO 50 mg HS [facility] Administration Quetiapine Fumarate 25 mg 03/28/19 09:00 03/28/19 08:19 Seroquel PO 25 mg DAILY [facility] Administration Tamsulosin HCl 0.8 mg 03/23/19 21:00 03/27/19 20:16 Flomax PO 0.8 mg HS [facility] Administration Thyroid 90 mg 03/23/19 06:00 03/28/19 04:10 [place] Thyroid PO 90 mg 0600 [facility] Administration - Exam NAD Heart: RRR, no murmur, no gallops, normal peripheral pulses Respiratory: CTAB, no wheezes, no rales, no ronchi Gastrointestinal: soft, non-tender, non-distended, normal bowel sounds Extremities: no cyanosis, no clubbing, no edema Skin: normal turgor Neurological: no focal deficits Psychiatric - other findings: not oriented to time/place/situation Hosp A/P (1) Encephalopathy Code(s): G93.40 - ENCEPHALOPATHY, UNSPECIFIED Status: Acute - Plan Impression 1. Encephalopathy with underlying mod-severe chronic ischemic changes by MRI 2. HTN with wide fluctuation of bp's that likely are causing orthostatic hypotension. I think pt will do better with higher baseline bp especially in the context of brain ischemic changes 3. Insomnia 4. Hypokalemia 5. Falls 6. CAD 7. DM2 8. HTN 9. ANemia Plan: - lower amlodipine to once daily, check orthostatics and monitor mentation - d/c lorazempam and start 15 mg restoril HS - discussed with daughter and she agrees - SNF referral - continue pt/ot - continue other meds as ordered dvt prophy - lovenox gi prophy - not indicated code status full reviewed plan of care with patient's daughter, no questions or further needs at end of eval
[2019-03-28] MEDS: Tamsulosin HCl 0.4 MG CAP PO SCH (21:34)
[2019-03-28] MEDS: Mirtazapine 15 MG TAB PO SCH (21:35)
[2019-03-28] MEDS: Temazepam 15 MG CAP PO SCH (21:36)
[2019-03-29 06:50] LABS: ALT (SGPT) 19 U/L (8-55); AST (SGOT) 14 U/L (5-34); Albumin 3.8 g/dL (3.4-4.8); Alkaline Phosphatase 44 U/L (40-150); Anion Gap 13 mmol/L (10-20); BUN (Urea Nitrogen) 22 mg/dL (8.4-25.7); Bilirubin, Total 0.4 mg/dL (0.2-1.2); Calc. Creatinine Clearance 59 mL/min (70-130); Calcium 9.6 mg/dL (7.8-10.44); Carbon Dioxide 28 mmol/L (23-31); Chloride 103 mmol/L (98-107); Estimated GFR-MDRD 71; Globulin 2.8 g/dL (2.4-3.5); Glucose 118 mg/dL (83-110); Magnesium 1.7 mg/dL (1.6-2.6); Phosphorus 3.9 mg/dL (2.3-4.7); Potassium 3.6 mmol/L (3.5-5.1); Protein, Total 6.6 g/dL (5.8-8.1); Sodium 140 mmol/L (136-145)
[2019-03-29] MEDS: Enoxaparin Sodium 40 MG/0.4 ML SYRINGE SC SCH (08:09)
[2019-03-29] MEDS: Calcium Carbonate + Vit D 1 TAB PO SCH (08:09)
[2019-03-29] MEDS: Pioglitazone HCl 45 MG TAB PO SCH (08:09)
[2019-03-29] MEDS: Aspirin 325 MG TAB PO SCH ×2 (08:09→21:11)
[2019-03-29] MEDS: metFORMIN 500 MG TAB PO SCH ×2 (08:10→17:03)
[2019-03-29] MEDS: Finasteride 5 MG TAB PO SCH (08:10)
[2019-03-29] MEDS: Amlodipine 5 MG TAB PO SCH (08:10)
[2019-03-29] MEDS: Multivit, Therapeutic 1 TAB PO SCH (08:10)
[2019-03-29] MEDS: Folic Acid 1 MG TAB PO SCH (08:10)
[2019-03-29] MEDS: Magnesium Chloride 64 MG TAB PO SCH ×2 (08:11→21:12)
[2019-03-29] MEDS: predniSONE 5 MG TAB PO SCH ×2 (08:11→17:03)
[2019-03-29] MEDS: Insulin Glargine 8 UNITS in Pre-Filled Syringe 1 EACH SC SCH (08:46)
--- NOTE | 2019-03-29 12:28 | PDOC.HOSPP ---
- Subjective Encounter Date: 03/29/19 (f/u encephalopathy) Encounter Time: 12:25 Subjective: Pt without complaints today. Denies any n/v/abd pain, cp/sob. Pt asking what he can do to help. - Objective Vital Signs & Weight: Vital Signs (12 hours) Temp Pulse Resp BP Pulse Ox 03/29/19 08:12 98.1 F 81 16 184/86 H 94 L 03/29/19 08:10 93 03/29/19 08:00 94 L Weight Weight 168 lb 9.6 oz I&O: 03/28/19 03/29/19 03/30/19 06:59 06:59 06:59 Intake Total 1200 240 Output Total 550 Balance -550 1200 240 Result Diagrams: 03/26/19 05:14 03/29/19 05:50 Additional Labs: Accuchecks 03/29/19 03/29/19 03/28/19 11:39 04:48 19:35 POC Glucose 119 H 128 H 180 H 03/28/19 16:27 POC Glucose 115 H ROS - Medication Medications: Active Medications Generic Name Dose Route Start Last Admin Trade Name Rose PRN Reason Stop Dose Admin Amlodipine Besylate 2.5 mg 03/29/19 09:00 03/29/19 08:10 Norvasc PO 2.5 mg DAILY [facility] Administration Aspirin 325 mg 03/22/19 09:00 03/29/19 08:09 Aspirin PO 325 mg BID [facility] Administration Calcium/Vitamin D 1 tab 03/22/19 09:00 03/29/19 08:09 Caltrate 600 + Vit D PO 1 tab DAILY [facility] Administration Enoxaparin Sodium 40 mg 03/27/19 09:00 03/29/19 08:09 Lovenox SC 40 mg 0900 [facility] Administration Finasteride 5 mg 03/22/19 09:00 03/29/19 08:10 Proscar PO 5 mg DAILY [facility] Administration Folic Acid 1 mg 03/23/19 09:00 03/29/19 08:10 Folvite PO 1 mg DAILY [facility] Administration Insulin Glargine 8 units/ 0.08 mls @ 0 mls/hr 03/23/19 09:00 03/29/19 08:46 Miscellaneous Medication SC 0.08 mls DAILY [facility] Administration Magnesium Chloride 64 mg 03/26/19 21:00 03/29/19 08:11 Slow-Mag PO 64 mg BID [facility] Administration Melatonin 6 mg 03/21/19 23:54 03/27/19 01:12 Melatonin PO 6 mg HSPRN PRN Administration Insomnia Metformin HCl 1,000 mg 03/22/19 08:00 03/29/19 08:10 Glucophage PO 1,000 mg BID-WM [facility] Administration Mirtazapine 30 mg 03/22/19 21:00 03/28/19 21:35 Remeron PO 30 mg HS [facility] Administration Multivitamins 1 tab 03/25/19 09:00 03/29/19 08:10 Theragran PO 1 tab DAILY [facility] Administration Pantoprazole Sodium 40 mg 03/25/19 09:00 03/29/19 08:10 Protonix PO 40 mg DAILY [facility] Administration Pioglitazone HCl 45 mg 03/23/19 09:00 03/29/19 08:09 Actos PO 45 mg DAILY [facility] Administration Prednisone 5 mg 03/22/19 08:00 03/29/19 08:11 Prednisone PO 5 mg BID-WM [facility] Administration Quetiapine Fumarate 50 mg 03/24/19 21:00 03/28/19 21:35 Seroquel PO 50 mg HS [facility] Administration Quetiapine Fumarate 25 mg 03/28/19 09:00 03/29/19 08:09 Seroquel PO 25 mg DAILY [facility] Administration Tamsulosin HCl 0.8 mg 03/23/19 21:00 03/28/19 21:34 Flomax PO 0.8 mg HS [facility] Administration Temazepam 15 mg 03/28/19 21:00 03/28/19 21:36 Restoril PO 15 mg HS [facility] Administration Thyroid 90 mg 03/23/19 06:00 03/29/19 05:44 [place] Thyroid PO 90 mg 0600 [facility] Administration - Exam NAD Neck: supple Heart: RRR, no murmur, no gallops, no rubs Respiratory: CTAB, no wheezes, no rales, no ronchi Gastrointestinal: soft, non-tender, non-distended, normal bowel sounds Extremities: no cyanosis, no clubbing, no edema Musculoskeletal: normal tone Hosp A/P (1) Encephalopathy Code(s): G93.40 - ENCEPHALOPATHY, UNSPECIFIED Status: Acute - Plan Impression 1. Encephalopathy with underlying mod-severe chronic ischemic changes by MRI 2. HTN uincontrolled - allowing for higher bp's to determine if this improves mentation and the dizziness/falls pt was experiencing prior to this hospitalization 3. Insomnia 4. Hypokalemia 5. Falls 6. CAD 7. DM2 8. HTN 9. ANemia Plan: - continue amlodipine once daily and allow higher bp's with goal of 160-180's systolic - continue restoril at night - RN notes improvement - SNF referral - daughter evaluating facilities today - continue pt/ot - continue other meds as ordered dvt prophy - lovenox gi prophy - not indicated code status full reviewed plan of care with patient's daughter, no questions or further needs at end of eval
[2019-03-29] MEDS: Temazepam 15 MG CAP PO SCH (21:11)
[2019-03-29] MEDS: Tamsulosin HCl 0.4 MG CAP PO SCH (21:11)
[2019-03-29] MEDS: Mirtazapine 15 MG TAB PO SCH (21:12)
[2019-03-30] MEDS: Pioglitazone HCl 45 MG TAB PO SCH (10:31)
[2019-03-30] MEDS: metFORMIN 500 MG TAB PO SCH ×2 (10:32→18:14)
[2019-03-30] MEDS: Calcium Carbonate + Vit D 1 TAB PO SCH (10:32)
[2019-03-30] MEDS: Aspirin 325 MG TAB PO SCH ×2 (10:32→21:18)
[2019-03-30] MEDS: Folic Acid 1 MG TAB PO SCH (10:33)
[2019-03-30] MEDS: Finasteride 5 MG TAB PO SCH (10:33)
[2019-03-30] MEDS: Amlodipine 5 MG TAB PO SCH (10:33)
[2019-03-30] MEDS: Multivit, Therapeutic 1 TAB PO SCH (10:34)
[2019-03-30] MEDS: predniSONE 5 MG TAB PO SCH ×2 (10:35→18:14)
[2019-03-30] MEDS: Enoxaparin Sodium 40 MG/0.4 ML SYRINGE SC SCH (10:35)
[2019-03-30] MEDS: Insulin Glargine 8 UNITS in Pre-Filled Syringe 1 EACH SC SCH (10:35)
[2019-03-30] MEDS: Magnesium Chloride 64 MG TAB PO SCH ×2 (10:36→21:20)
--- NOTE | 2019-03-30 13:44 | PDOC.HOSPP ---
- Subjective Encounter Date: 03/30/19 (f/u encephalopathy) Encounter Time: 10:30 Subjective: Summary: 84 y/o male admitted for toxic-metabolic encephalopathy after a fall at home. During this hospitalization - medications have been adjusted with sinemet d/c as no documented hx of parkinsons disease. In consultation with Neurology- seroquel added HS and then AM dose added, restoril scheduled at night for insomnia, and anti-htn adjusted. Nursing staff reports pt didnt sleep much last night. States he is awake, eating today without problems. Pt denies any pain or problems. - Objective Vital Signs & Weight: Vital Signs (12 hours) Temp Pulse Pulse Pulse Resp BP BP 03/30/19 11:36 97 98 113/68 03/30/19 10:33 86 152/91 H 03/30/19 07:16 97.9 F 86 17 BP BP Pulse Ox Pulse Ox Pulse Ox 03/30/19 11:36 97 97 03/30/19 10:33 03/30/19 07:16 152/91 H 167/85 H 92 L Weight Weight 168 lb 9.6 oz I&O: 03/29/19 03/30/19 03/31/19 06:59 06:59 06:59 Intake Total 1200 1080 Output Total 150 Balance 1200 930 Result Diagrams: 03/26/19 05:14 03/29/19 05:50 Additional Labs: Accuchecks 03/30/19 03/30/19 03/29/19 13:19 05:20 20:05 POC Glucose 144 H 100 143 H 03/29/19 16:32 POC Glucose 138 H ROS - Medication Medications: Active Medications Generic Name Dose Route Start Last Admin Trade Name Brodieq PRN Reason Stop Dose Admin Amlodipine Besylate 2.5 mg 03/29/19 09:00 03/30/19 10:33 Norvasc PO 2.5 mg DAILY [facility] Administration Aspirin 325 mg 03/22/19 09:00 03/30/19 10:32 Aspirin PO 325 mg BID [facility] Administration Calcium/Vitamin D 1 tab 03/22/19 09:00 03/30/19 10:32 Caltrate 600 + Vit D PO 1 tab DAILY [facility] Administration Enoxaparin Sodium 40 mg 03/27/19 09:00 03/30/19 10:35 Lovenox SC 40 mg 09 [facility] Administration Finasteride 5 mg 03/22/19 09:00 03/30/19 10:33 Proscar PO 5 mg DAILY [facility] Administration Folic Acid 1 mg 03/23/19 09:00 03/30/19 10:33 Folvite PO 1 mg DAILY [facility] Administration Insulin Glargine 8 units/ 0.08 mls @ 0 mls/hr 03/23/19 09:00 03/30/19 10:35 Miscellaneous Medication SC 0.08 mls DAILY [facility] Administration Magnesium Chloride 64 mg 03/26/19 21:00 03/30/19 10:36 Slow-Mag PO 64 mg BID [facility] Administration Melatonin 6 mg 03/21/19 23:54 03/27/19 01:12 Melatonin PO 6 mg HSPRN PRN Administration Insomnia Metformin HCl 1,000 mg 03/22/19 08:00 03/30/19 10:32 Glucophage PO 1,000 mg BID-WM [facility] Administration Mirtazapine 30 mg 03/22/19 21:00 03/29/19 21:12 Remeron PO 30 mg HS [facility] Administration Multivitamins 1 tab 03/25/19 09:00 03/30/19 10:34 Theragran PO 1 tab DAILY [facility] Administration Pantoprazole Sodium 40 mg 03/25/19 09:00 03/30/19 10:34 Protonix PO 40 mg DAILY [facility] Administration Pioglitazone HCl 45 mg 03/23/19 09:00 03/30/19 10:31 Actos PO 45 mg DAILY [facility] Administration Prednisone 5 mg 03/22/19 08:00 03/30/19 10:35 Prednisone PO 5 mg BID-WM [facility] Administration Quetiapine Fumarate 50 mg 03/24/19 21:00 03/29/19 21:11 Seroquel PO 50 mg HS [facility] Administration Quetiapine Fumarate 25 mg 03/28/19 09:00 03/30/19 10:32 Seroquel PO 25 mg DAILY [facility] Administration Tamsulosin HCl 0.8 mg 03/23/19 21:00 03/29/19 21:11 Flomax PO 0.8 mg HS [facility] Administration Temazepam 15 mg 03/28/19 21:00 03/29/19 21:11 Restoril PO 15 mg HS [facility] Administration Thyroid 90 mg 03/23/19 06:00 03/30/19 05:23 [place] Thyroid PO 90 mg 0600 [facility] Administration - Exam NAD Heart: RRR, no murmur, no gallops, no rubs Respiratory: CTAB, no wheezes, no rales, no ronchi Gastrointestinal: soft, non-tender, non-distended, normal bowel sounds, no palpable masses Extremities: no cyanosis, no clubbing, no edema Neurological: no focal deficits Psychiatric - other findings: alert and responsive, not oriented to situation Hosp A/P (1) Encephalopathy Code(s): G93.40 - ENCEPHALOPATHY, UNSPECIFIED Status: Acute - Plan Impression 1. Encephalopathy with underlying mod-severe chronic ischemic changes by MRI 2. HTN uincontrolled - allowing for higher bp's to determine if this improves mentation and the dizziness/falls pt was experiencing prior to this hospitalization 3. Insomnia 4. Hypokalemia - resolved 5. Falls 6. CAD 7. DM2 8. HTN 9. Anemia Plan: - I think pt is at goal for bp's 150-160's for now, following mental status - continue restoril at night - pt had benefit after first dose, less reported benefit last night - monitor and titrate to effect - SNF referral placed yesterday - awaiting approval - continue pt/ot - continue other meds as ordered dvt prophy - lovenox gi prophy - not indicated code status full Pt is ready for discharge when accepted at rehab
--- NOTE | 2019-03-30 18:25 | PDOC.EVN ---
Event Note - Event Note Event Note: Called by RN for pt who got out of bed and slipped down to his knees. Mary [employer]/RN reports no head trauma. Bed alarm was on but did not alert the nurses station and nurses witnessed him on the camera get out of bed. No concerns about pt condition noted. RN's to continue to monitor.
[2019-03-30] MEDS: Mirtazapine 15 MG TAB PO SCH (21:18)
[2019-03-30] MEDS: Temazepam 15 MG CAP PO SCH (21:18)
[2019-03-30] MEDS: Tamsulosin HCl 0.4 MG CAP PO SCH (21:18)
[2019-03-31 05:22] LABS: #Lymphocytes 0.9 thou/uL (1.20-3.40); #Monocytes 0.5 thou/uL (0.11-0.59); #Neutrophils 5.3 thou/uL (1.40-6.50); %Basophils 0.5 % (0.0-1.0); %Eosinophils 0.6 % (0.0-10.0); %Lymphocytes 13.3 % (21.0-51.0); %Monocytes 7.6 % (0.0-10.0); %Neutrophils 78.1 % (42.0-75.0); Hemoglobin 12.3 g/dL (14.0-18.0); Mean Corpuscular HGB CONC 33.7 g/dL (32.0-36.0); Mean Corpuscular Hemoglobin 34.7 pg (27.0-31.0); Mean Platelet Volume 7.2 fL (7.4-10.4); Platelet Count 203 thou/uL (130-400); Red Blood Cell (RBC) Count 3.54 mill/uL (4.70-6.10); White Blood Cell (WBC) Count 6.8 thou/uL (4.8-10.8)
[2019-03-31 05:49] LABS: Anion Gap 13 mmol/L (10-20); BUN (Urea Nitrogen) 28 mg/dL (8.4-25.7); Calc. Creatinine Clearance 64 mL/min (70-130); Calcium 9.7 mg/dL (7.8-10.44); Carbon Dioxide 26 mmol/L (23-31); Chloride 104 mmol/L (98-107); Estimated GFR-MDRD 77; Glucose 111 mg/dL (83-110); Potassium 4.1 mmol/L (3.5-5.1); Sodium 139 mmol/L (136-145)
[2019-03-31] MEDS: Aspirin 325 MG TAB PO SCH (08:12)
[2019-03-31] MEDS: Pioglitazone HCl 45 MG TAB PO SCH (08:12)
[2019-03-31] MEDS: Calcium Carbonate + Vit D 1 TAB PO SCH (08:12)
[2019-03-31] MEDS: Finasteride 5 MG TAB PO SCH (08:12)
[2019-03-31] MEDS: predniSONE 5 MG TAB PO SCH ×2 (08:12→17:16)
[2019-03-31] MEDS: Amlodipine 5 MG TAB PO SCH (08:13)
[2019-03-31] MEDS: metFORMIN 500 MG TAB PO SCH ×2 (08:13→17:15)
[2019-03-31] MEDS: Folic Acid 1 MG TAB PO SCH (08:13)
[2019-03-31] MEDS: Multivit, Therapeutic 1 TAB PO SCH (08:14)
[2019-03-31] MEDS: Enoxaparin Sodium 40 MG/0.4 ML SYRINGE SC SCH (08:14)
[2019-03-31 11:39] VITALS: BMI 26.2
[2019-03-31] MEDS: Insulin Glargine 8 UNITS in Pre-Filled Syringe 1 EACH SC SCH (12:35)
[2019-03-31] MEDS: Magnesium Chloride 64 MG TAB PO SCH (12:35)
--- NOTE | 2019-03-31 15:39 | DIS ---
DATE OF ADMISSION: 03/22/2019 DATE OF DISCHARGE: 03/31/2019 PRIMARY CARE PHYSICIAN: [facility] Call Admission. DISCHARGE DISPOSITION: detention home. PRIMARY DISCHARGE DIAGNOSIS: Acute encephalopathy, unclear etiology, probably related with toxic metabolic encephalopathy. SECONDARY DISCHARGE DIAGNOSES: 1. Hypertension. 2. Diabetes type 2. 3. Coronary artery disease. 4. Recurrent fall. 5. Physical deconditioning. PRIMARY PROCEDURE/OPERATION: None. RADIOLOGICAL INVESTIGATION: Cervical spine CT scan, facial bone CT scan, CT brain, carotid Doppler, echocardiography, and MRI brain. SIGNIFICANT LABORATORY DATA: WBC 6.8, hemoglobin 12.3, and platelet 203. Sodium 139, creatinine 0.93, calcium 9.3. Urinalysis, normal. Syphilis, negative. DISCHARGE MEDICATIONS: 1. Zytiga 500 mg p.o. daily. 2. Lipoic acid 50 mg p.o. daily. 3. Vitamin C 500 mg p.o. daily. 4. Lipitor 20 mg p.o. daily. 5. Calcium with vitamin D 1 tablet daily. 6. Carbidopa-levodopa one tablet p.o. q.i.d. 7. Vitamin B12, 1000 mcg p.o. daily. 8. Zetia 10 mg daily. 9. Proscar 5 mg daily. 10. Atarax 50 mg p.o. nightly p.r.n. 11. Lantus 10 units subcu daily. 12. Metformin 1000 mg b.i.d. 13. Remeron 30 mg p.o. nightly. 14. Actos 45 mg p.o. daily. 15. Prednisone 5 mg p.o. b.i.d. 16. Flomax 0.8 mg p.o. nightly. 17. [place] Thyroid 90 mg p.o. daily. 18. Amlodipine 5 mg p.o. daily. 19. Aspirin 325 mg p.o. daily. 20. Folic acid 1 mg p.o. daily. 21. Magnesium oxide 64 mg p.o. b.i.d. 22. Multivitamin one tablet p.o. daily. 23. Seroquel 50 mg p.o. nightly and 25 mg in the morning. CONTRAINDICATION: None. CODE STATUS: Full code. INPATIENT WALLPAPER INSPECTOR: Dr. Renetta Yepez, Palliative Care Team. TEST RESULTS PENDING ON DISCHARGE: None. ALLERGIES: NO KNOWN DRUG ALLERGIES. DISCHARGE PLAN: Posthospital, the patient will follow up with primary care physician and neurologist. HOSPITAL COURSE: An 84-year-old male with above-mentioned medical problem, who was admitted by TONG Alva. Please see her H and P for further details the patient was admitted for altered mental status. He was having encephalopathy, which we initially suspected metabolic etiology. We ruled out stroke. We did CT cervical spine and CT facial bone, which were unremarkable. CT brain showed chronic ischemic white matter changes. MRI brain also showed chronic ischemic white matter changes without any acute process. Echocardiography was also unremarkable. Neurology was consulted while in hospital. The patient was treated with Seroquel with significant improvement. The patient is doing much better upon stabilization and he was requiring placement and that is why with help of piano case and bench assembler, the patient has been approved for correction home. The patient was seen and examined at bedside today. Paper work for discharge done and discharge medication reconciliation done. Job ID: [id number]
[2019-03-31 17:07] VITALS: BP 190/93; TEMP 98.1
--- NOTE | 2019-04-02 14:30 | EKG ---
Test Reason : FALL Blood Pressure : / mmHG Vent. Rate : 087 BPM Atrial Rate : 087 BPM P-R Int : 176 ms QRS Dur : 082 ms QT Int : 410 ms P-R-T Axes : 041 030 047 degrees QTc Int : 493 ms Normal sinus rhythm T wave abnormality, consider anterior ischemia Prolonged QT Abnormal ECG Confirmed by SINDY SIMMONS ([id number]), content editor LAILA SCHULZ ([id number]) on 04/02/2019 2:30:11 PM Referred By: Confirmed By:SINDY SIMMONS
== END 2019-03-31 20:10 | DRG 93 ==
LOC: ERS 16:49 → ERHOLD 22:30 → T4-A 03-21 17:37 → OBSVTOIN 03-22 13:56 → T4-A 03-30 18:29
PROVIDERS: ADMIT Hospitalist; ATTEND Hospitalist
DX: G92 Toxic encephalopathy (principal); I12.9 Hypertensive chronic kidney disease with stage 1 through stage 4 chronic kidney disease, or unspecified chronic kidney disease; E11.22 Type 2 diabetes mellitus with diabetic chronic kidney disease; N18.2 Chronic kidney disease, stage 2 (mild); I25.10 Atherosclerotic heart disease of native coronary artery without angina pectoris; R29.6 Repeated falls; Z51.5 Encounter for palliative care; G47.00 Insomnia, unspecified; E87.6 Hypokalemia; D63.1 Anemia in chronic kidney disease; R53.81 Other malaise; S00.81XA Abrasion of other part of head, initial encounter; S00.83XA Contusion of other part of head, initial encounter; J45.909 Unspecified asthma, uncomplicated; G20 Parkinson's disease; F02.80 Dementia in other diseases classified elsewhere, unspecified severity, without behavioral disturbance, psychotic disturbance, mood disturbance, and anxiety; W19.XXXA Unspecified fall, initial encounter; W06.XXXA Fall from bed, initial encounter; Y92.230 Patient room in hospital as the place of occurrence of the external cause; Z95.1 Presence of aortocoronary bypass graft; Z91.81 History of falling; Y92.012 Bathroom of single-family (private) house as the place of occurrence of the external cause; Z95.2 Presence of prosthetic heart valve; Z79.899 Other long term (current) drug therapy; Z79.4 Long term (current) use of insulin; Z79.52 Long term (current) use of systemic steroids; Z79.82 Long term (current) use of aspirin
CPT/HCPCS: 36415; 36416; 70450; 70486; 70551; 72125; 80048; 80053; 81003; 82140; 82550; 82607; 82746; 83605; 83735; 83880; 84100; 84443; 85025; 86780; 90471; 90670; 93005; 93306; 93880; 96360; G0009; J0360; J1630; J1650; J1815; J3475; J3486; J7512

== ENCOUNTER 2019-04-09 05:28 | Observation (INO) | payer MEDICARE ==
[2019-04-09 06:48] LABS: #Eosinphils 0.1 thou/uL (0.0-0.7); #Lymphocytes 1.4 thou/uL (1.20-3.40); #Monocytes 0.7 thou/uL (0.11-0.59); #Neutrophils 5.8 thou/uL (1.40-6.50); %Basophils 0.4 % (0.0-1.0); %Eosinophils 1.4 % (0.0-10.0); %Lymphocytes 17.5 % (21.0-51.0); %Neutrophils 71.7 % (42.0-75.0); Hemoglobin 12.5 g/dL (14.0-18.0); Mean Corpuscular HGB CONC 33.8 g/dL (32.0-36.0); Mean Corpuscular Hemoglobin 34.8 pg (27.0-31.0); Mean Platelet Volume 7.2 fL (7.4-10.4); Platelet Count 174 thou/uL (130-400); RBC Distribution Width 12.6 % (11.5-14.5); Red Blood Cell (RBC) Count 3.59 mill/uL (4.70-6.10); White Blood Cell (WBC) Count 8.1 thou/uL (4.8-10.8)
[2019-04-09 07:13] LABS: ALT (SGPT) 28 U/L (8-55); AST (SGOT) 21 U/L (5-34); Alkaline Phosphatase 43 U/L (40-150); Anion Gap 12 mmol/L (10-20); BUN (Urea Nitrogen) 27 mg/dL (8.4-25.7); Bilirubin, Total 0.3 mg/dL (0.2-1.2); Calc. Creatinine Clearance 0 mL/min (70-130); Calcium 10.1 mg/dL (7.8-10.44); Carbon Dioxide 30 mmol/L (23-31); Chloride 100 mmol/L (98-107); Estimated GFR-MDRD 60; Globulin 2.8 g/dL (2.4-3.5); Glucose 156 mg/dL (83-110); Protein, Total 6.8 g/dL (5.8-8.1); Sodium 138 mmol/L (136-145)
[2019-04-09 07:16] LABS: INR-International Normal Ratio 0.9; PTT 24.8 SEC (22.9-36.1); Prothrombin Time 12.5 SEC (12.0-14.7)
--- NOTE | 2019-04-09 07:29 | CT ---
CT HEAD NONCONTRAST: COMPARISON: 03/20/2019. INDICATION: Fall with head injury. FINDINGS: Age-related parenchymal volume loss and compensatory dilatation of the ventricular system is present, similar appearing. There is chronic ischemic disease of the cerebral white matter as well as superi mposed, scattered lacunar infarctions, similar in appearance. No intracranial hemorrhage, mass effec t, or midline shift. Partially imaged retention cyst is present within the right maxillary sinus. IMPRESSION: No acute intracranial abnormality. POS: RIZWANA
--- NOTE | 2019-04-09 08:15 | CT ---
CERVICAL SPINE CT NONCONTRAST: COMPARISON: 03/20/2019. INDICATION: Injury-related fall. FINDINGS: Multilevel degenerative change throughout the cervical spine is similar in appearance. There is no i nterval acute compression fracture or subluxation. The craniocervical junction is intact. Trace deg enerative spondylolisthesis of C4-5 is stable. Grade I spondylolisthesis at the cervicothoracic junc tion is also stable. IMPRESSION: 1. No interval acute fracture of the cervical spine. 2. Exam is stable in appearance to 03/20/2019 CT cervical spine. POS: RIZWANA
--- NOTE | 2019-04-09 08:18 | HP ---
HISTORY OF PRESENT ILLNESS: This is an 84-year-old gentleman who came into the ER, evaluated after a fall in a half-way. His historian note from EMS, in his report the patient was standing, lost his balance and fell. No loss of consciousness. Vital signs are stable en route. The patient is a poor historian. He is consistent with his baseline mental status. He is oriented x2. Upon arrival to the ER, the patient is alert and awake, oriented x2. He could not remember what time currently or the day of the year. He is complaining of pain from the left hip and he also states that he did lost consciousness, but did not describe any specific. The patient voiced no pain on his neck, chest or abdomen. PAST MEDICAL HISTORY: from RE note, the patient have history of CABG three vessels, diabetes, asthma, chronic kidney disease, hypertension, hypothyroid, BPH, possibly prostate cancer Social History: Patient was living in [place], walking independently using can. alcohol and smoking, could not recover due to poor historian. ALLERGIES: NO KNOWN ALLERGY. no known allergy CURRENT MEDICATION: 1. Temazepam. 2. Alpha lipoic acid. 3. Norvasc. 4. Seroquel. 5. Flomax. 6. Aspirin. 7. Finasteride. 8. Zetia. 9. Theragen. 10. Prednisone. 11. Actos. 12. Folic acid. 13. Lipitor. 14. Magnesium. 15. Lantus. 16. Metformin. 17. Zytiga. 18. [place] Thyroid. 19. Vitamin B12 with folic acid. 20. Vitamin C. REVIEW OF SYSTEM: Noncontributory except per HPI. PHYSICAL EXAMINATION: GENERAL: The patient is lying down in bed, in no acute distress. VITAL SIGNS: Blood pressure 127/100, heart rate 98, respiratory rate 18, temperature 98, and O2 saturation 96 on room air. HEENT: Atraumatic. No bruising. Not tender to touch. NECK: Trachea midline. No bruising. Not tender to touch. CHEST: No bruising. No deformity. Not tender to touch. LUNGS: Clear bilaterally. HEART: Regular rate and rhythm. No murmur. ABDOMEN: Soft and nondistended. Right flank bruising and bilateral bruising and mild tender to touch in the right lower abdomen. Bowel sounds active. There are no bruising on auscultation. EXTREMITIES: Neurovascularly intact x4. Limited range of motion under left hip due to pain. NEUROLOGY: No focal neurology deficits. LABORATORY DATA: Initial results pending. DIAGNOSES: 1. Status post unwitnessed ground level fall. 2. Right acetabular, right sacral and right ramus fracture. 3. History of coronary artery bypass grafting, three vessels. 4. Diabetes with insulin injection. 5. Chronic kidney disease. 6. Hypertension. 7. Hypothyroid. 8. Benign prostatic hyperplasia. 9. Prostate cancer. PLAN: ER, Dr. Braden contacted Dr. Kilgore. Dr. Kilgore requested admission for observation and make decision on whether he will be operation or non op in time. The patient will have pain control. The patient will start nonpharmacologic DVT prophylaxis, gastritic prophylaxis. Waiting for official abdominal and pelvis CT scan. Waiting for lab results. The patient will be admitted to surgical floor. Job ID: [id number] MTDD
--- NOTE | 2019-04-09 08:24 | CT ---
PELVIC CT NONCONTRAST: INDICATION: Injury related to fall. FINDINGS: Mildly displaced fracture is present at the right inferior pubic ramus. There is a mildly comminuted and mildly displaced fracture of the right acetabulum, anteriorly. The femoral head remains seated within the acetabular cuff. There is a subtle, nondisplaced lucency at the right sacral ala. This c ould relate to an associated nondisplaced sacral fracture. Saline reservoir for penile prosthesis is seen to the left of the urinary bladder. There is moderate distention of the urinary bladder. IMPRESSION: Fractures of the right hemipelvis involving the inferior right pubic ramus, right acetabulum, and tg nt lucency of the right sacral ala which could relate to a nondisplaced right hemisacral fracture. POS: TARAK
--- NOTE | 2019-04-09 08:26 | RAD ---
RIGHT FEMUR: INDICATION: Fall with pain. FINDINGS: The imaged right femur is intact. Incidental note of mildly displaced right hemipelvic fractures as are discussed on the concurrent CT exam. IMPRESSION: 1. No displaced fracture of the right femur. 2. Right hemipelvic fractures. POS: NWK
--- NOTE | 2019-04-09 08:43 | CT ---
ABDOMEN AND PELVIS CT WITH CONTRAST CT LUMBAR SPINE WITH CONTRAST AND 3D VOLUME RENDERING: INDICATION: Unwitnessed fall. FINDINGS: Interstitial opacities at the lung bases are present. There is no definite acute posttraumatic seque lae of the solid abdominal organs. A cyst is seen within the right kidney. The bowel is incompletel y assessed without enteric contrast. No pneumoperitoneum or portal vein gas is seen. No retroperito esau hematoma. Scattered vascular disease is present. No definite acute aortic trauma is evident. Moderately distended unopacified urinary bladder is intact. Reformatted lumbar spine imaging reveals no acute fracture. There is multilevel degenerative change. IMPRESSION: There is no definite acute posttraumatic sequelae of the abdomen, or lumbar spine. Please reference the previously dictated CT exam for details regarding the right hemipelvic fractures. POS: RIZWANA
--- NOTE | 2019-04-09 08:57 | RAD ---
CHEST 1 VIEW: HISTORY: Preoperative exam. FINDINGS: There are sternotomy wires. There is atherosclerosis of the aortic knob. Heart is enlarged. Pulmon shante vessels and hilum are normal. Costophrenic angles are clear. Elevation of the right hemidiaphra gm may be due to diaphragmatic paralysis. A component of atelectasis cannot be excluded. No pneumot horax. No acute osseous abnormalities. IMPRESSION: 1. Atherosclerosis. 2. Elevation of the right hemidiaphragm which may be due to diaphragmatic paralysis. A component of right lower lobe atelectasis cannot be excluded. POS: ESTUARDO
[2019-04-09] MEDS ORDERED: Cyclobenzaprine 10 MG TAB PO PRN (10:03)
[2019-04-09] MEDS ORDERED: Ondansetron PF 4 MG/2 ML Vial IVP PRN (10:03)
[2019-04-09] MEDS ORDERED: traMADol HCl 50 MG TAB PO PRN ×2 (10:03)
[2019-04-09] MEDS ORDERED: Acetaminophen 1,000 MG in Premix Bag 1 BAG IVPB SCH (10:03)
[2019-04-09] MEDS ORDERED: hydrALAZINE 20 MG/ML VIAL SLOW IVP PRN (10:03)
[2019-04-09] MEDS ORDERED: Sodium Chloride 0.9% 1,000 ML IV SCH (10:03)
[2019-04-09] MEDS ORDERED: Ketorolac Tromethamine 30 MG/ML VIAL IVP SCH (10:03)
[2019-04-09] MEDS ORDERED: Dextrose 50% Abboject 50 ML SYRINGE SLOW IVP PRN (10:03)
[2019-04-09] MEDS ORDERED: Ondansetron ODT 4 MG TAB PO PRN (10:03)
[2019-04-09] MEDS ORDERED: Dextrose 5% in Water 1,000 ML IV PRN (10:03)
[2019-04-09] MEDS ORDERED: Famotidine 20 MG TAB PO SCH (10:30)
[2019-04-09] MEDS ORDERED: Morphine 2 MG/ML SYRINGE SLOW IVP PRN (10:33)
[2019-04-09] MEDS ORDERED: Iopamidol 370 76% 100 ML VIAL ONE (11:12)
[2019-04-09 11:38] VITALS: BMI 24.3
--- NOTE | 2019-04-09 11:53 | EKG ---
Test Reason : CONFIRM DIAGNOSIS Blood Pressure : / mmHG Vent. Rate : 092 BPM Atrial Rate : 092 BPM P-R Int : 188 ms QRS Dur : 082 ms QT Int : 356 ms P-R-T Axes : 038 013 015 degrees QTc Int : 440 ms Normal sinus rhythm Normal ECG Confirmed by KIMBERLY RUIZ M.D. ([id number]), map editor ELOISE DEL VALLE ([id number]) on 04/09/2019 11:52:38 AM Referred By: Confirmed By:KIMBERLY RUIZ M.D.
[2019-04-09] MEDS: Ibuprofen 200 MG TAB PO SCH ×2 (14:37→21:31)
[2019-04-09] MEDS: Acetaminophen 325 MG TAB PO SCH ×2 (16:27→23:10)
[2019-04-09] MEDS: predniSONE 5 MG TAB PO SCH (16:28)
[2019-04-09] MEDS: Insulin Regular 300 UNITS/3 ML VIAL SC PRN ×2 (16:28→21:35)
[2019-04-09] MEDS: Magnesium Chloride 64 MG TAB PO SCH (21:30)
[2019-04-09] MEDS: Famotidine 20 MG TAB PO SCH (21:31)
[2019-04-09] MEDS: Temazepam 15 MG CAP PO SCH (21:31)
[2019-04-09] MEDS: Tamsulosin HCl 0.4 MG CAP PO SCH (21:31)
[2019-04-10 04:27] LABS: #Eosinphils 0.3 thou/uL (0.0-0.7); #Monocytes 0.7 thou/uL (0.11-0.59); #Neutrophils 7.3 thou/uL (1.40-6.50); %Basophils 0.3 % (0.0-1.0); %Eosinophils 2.9 % (0.0-10.0); %Lymphocytes 10.7 % (21.0-51.0); %Monocytes 7.4 % (0.0-10.0); %Neutrophils 78.8 % (42.0-75.0); Hemoglobin 11.5 g/dL (14.0-18.0); Mean Corpuscular HGB CONC 33.6 g/dL (32.0-36.0); Mean Corpuscular Hemoglobin 34.7 pg (27.0-31.0); Mean Platelet Volume 7.5 fL (7.4-10.4); Platelet Count 144 thou/uL (130-400); RBC Distribution Width 12.6 % (11.5-14.5); Red Blood Cell (RBC) Count 3.31 mill/uL (4.70-6.10); White Blood Cell (WBC) Count 9.3 thou/uL (4.8-10.8)
[2019-04-10 04:57] LABS: Anion Gap 12 mmol/L (10-20); BUN (Urea Nitrogen) 21 mg/dL (8.4-25.7); Calc. Creatinine Clearance 63 mL/min (70-130); Calcium 9.1 mg/dL (7.8-10.44); Carbon Dioxide 28 mmol/L (23-31); Chloride 104 mmol/L (98-107); Estimated GFR-MDRD 77; Glucose 103 mg/dL (83-110); Magnesium 1.7 mg/dL (1.6-2.6); Phosphorus 3.2 mg/dL (2.3-4.7); Sodium 140 mmol/L (136-145)
[2019-04-10] MEDS: Acetaminophen 325 MG TAB PO SCH ×4 (06:05→23:05)
[2019-04-10] MEDS: Ibuprofen 200 MG TAB PO SCH ×3 (06:06→23:04)
[2019-04-10] MEDS: predniSONE 5 MG TAB PO SCH ×2 (07:56→17:06)
[2019-04-10] MEDS: Aspirin 325 MG TAB PO SCH (08:53)
[2019-04-10] MEDS: Multivit, Therapeutic 1 TAB PO SCH (08:53)
[2019-04-10] MEDS: Atorvastatin Calcium 20 MG TAB PO SCH (08:53)
[2019-04-10] MEDS: Pioglitazone HCl 45 MG TAB PO SCH (08:53)
[2019-04-10] MEDS: Amlodipine 5 MG TAB PO SCH (08:53)
[2019-04-10] MEDS: Magnesium Chloride 64 MG TAB PO SCH ×2 (08:53→20:14)
[2019-04-10] MEDS: Folic Acid 1 MG TAB PO SCH (08:54)
[2019-04-10] MEDS: Famotidine 20 MG TAB PO SCH ×2 (08:54→20:14)
[2019-04-10] MEDS: Cyanocobalamin (Vitamin B-12) 1,000 MCG TAB PO SCH (08:54)
[2019-04-10] MEDS: Finasteride 5 MG TAB PO SCH (08:55)
[2019-04-10] MEDS: Ezetimibe 10 MG TAB PO SCH (08:55)
--- NOTE | 2019-04-10 10:24 | PRG ---
DATE OF SERVICE: 04/10/2019 SUBJECTIVE: The patient is currently on the surgical floor, status post ground level fall that resulted in right acetabular fracture in addition to nondisplaced right sacral and right pubic rami fractures, these are all being treated conservatively/nonoperatively. The patient overnight had no reported issues. The nurses did note that the daughter would like to speak with the orthopedic surgeons and we passed this message along to the orthopedic surgeon. Trauma PA last night was able to talk to the daughter, but the daughter still requests discussion with orthopedic surgeon. Again, this was passed along to our orthopedic colleagues. OBJECTIVE: VITAL SIGNS: Temperature 98.8, heart rate 76, blood pressure 152/82, respirations 16, oxygen saturation is 94% on room air. GENERAL: The patient is resting comfortably in bed. He appears in no distress. He was asleep this morning when I entered his room, but he was awakened with verbal stimuli. He appears to be at his baseline compared to yesterday regarding he will answer simple questions, but does have some disorientation and has to be reoriented frequently. LUNGS: Clear bilaterally. HEART: Regular rate and rhythm. ABDOMEN: Soft, flat, nontender with active bowel sounds. EXTREMITIES: The patient moves all extremities. Capillary refill is less than 3 seconds. LABORATORY FINDINGS: White blood cell count 9.3, hemoglobin 11.5, hematocrit 34.2, platelets 144. Sodium 140, potassium 4.0, chloride 104, CO2 of 28, BUN 21, creatinine 0.93, glucose 77, magnesium 1.7, phosphorus 3.2. There are no radiographs reviewed this morning. ASSESSMENT: 1. Status post ground level fall. 2. Right acetabular, right sacral, and right ramus fractures, conservative treatment. PLAN: Plan will be to continue supportive care and discuss placement with the family and move towards giving the patient back to his facility as soon as possible. Job ID: [id number]
[2019-04-10] MEDS: Insulin Regular 300 UNITS/3 ML VIAL SC PRN ×2 (11:27→20:16)
--- NOTE | 2019-04-10 12:41 | CON ---
DATE OF CONSULTATION: 04/10/2019 HISTORY OF PRESENT ILLNESS: Mr. Boucher is an 84-year-old male, currently at the [facility], history of multiple medical problems included dementia and multiple falls, who fell, sustained a right high ramus fracture with an inferior ramus fracture and a small cortical disruption of zone 1 sacral ala. The patient is currently resting comfortably in bed. The patient sat at the bedside, but his daughter is there. He is not actually complaining of any pain. Pain is controlled with Tylenol currently. The patient is afebrile. PHYSICAL EXAMINATION: VITAL SIGNS: Stable. GENERAL: Alert male, in no acute distress. EXTREMITIES: Right lower extremity neurovascular intact. No pain with AP and lateral compression. LABORATORY DATA: H and H 11 and 34. Creatinine is controlled 0.73. IMPRESSION: Right high ramus/inferior ramus fracture with zone 1 sacral fracture. ASSESSMENT AND PLAN: The patient will be touchdown weightbearing, but likely will weightbear as tolerated given his cognitive status leading to walker for ambulation. The patient will follow up me in about 6 weeks for plain radiographs of his pelvis. I discussed with the daughter at length, I spent more than 30 minutes with her to communicating and showing his x-rays as well as discussing the patient's long-term complications. I discussed mortality associated with this injury combined with the patient's dementia. I discussed regarding multiple falls and he continue to progress. I discussed it will take time to heal. He understands all these risks and the daughter understands these further complications and potential outcomes. We will follow him up in 6 weeks if he is discharged from this [facility] today. Job ID: [id number]
[2019-04-10] MEDS: Senokot S 8.6-50 MG TAB PO SCH (20:13)
[2019-04-10] MEDS: Melatonin 3 MG TAB PO SCH (20:14)
[2019-04-10] MEDS: Tamsulosin HCl 0.4 MG CAP PO SCH (20:14)
[2019-04-10] MEDS: Temazepam 15 MG CAP PO SCH (20:14)
--- NOTE | 2019-04-10 21:59 | PRG ---
DATE OF SERVICE: 04/10/2019 SUBJECTIVE: Mr. Boucher is an 84-year-old gentleman status post ground level fall. He sustained right acetabular fracture, nondisplaced right sacral and right ramus fracture. The patient is being treated conservatively by Orthopedic. The patient reports has been doing good. He voiced no concern. He developed no fever or shortness of breath. His pain is well controlled. He has not had bowel movement since admission. His urine is adequate. OBJECTIVE: GENERAL: The patient is lying down in bed, comfortable, in no acute distress. VITAL SIGNS: Heart rate 98, respiratory rate 20, O2 saturation 95 on room air, blood pressure 153/76. LUNGS: Clear bilaterally. HEART: Regular rate and rhythm. ABDOMEN: Soft, nondistended. EXTREMITIES: Neurovascularly intact x4. NEUROLOGIC: No focal neurologic deficits. ASSESSMENT: 1. Status post ground level fall. 2. Right acetabular, right sacral, right ramus fracture. Conservative treatment. 3. History of hypertension. 4. BPH. 5. Hypothyroid. PLAN: Continue supportive care. Continue pain control. Continue DVT, gastritis prophylaxis using aspirin. The patient is waiting for placement, which is to go back to his [facility]. Job ID: [id number] MTDD
[2019-04-11] MEDS: Ibuprofen 200 MG TAB PO SCH ×3 (05:39→21:19)
[2019-04-11] MEDS: Acetaminophen 325 MG TAB PO SCH ×4 (05:40→22:32)
--- NOTE | 2019-04-11 09:19 | HP ---
ADDENDUM: CHIEF COMPLAINT: Fall. This is an addendum to the H and P dictated by NONI Acevedo. For full details, please see her H and P. I have confirmed the details of this report and discussed the patient's treatment plan with her. In short, Mr. Boucher is an 84-year-old demented [facility] patient, who fell from standing. He is unable to tell me exactly what happened, but he denies any loss of consciousness before or after the event. He initially was complaining of pain in his left hip, but was comfortable when I saw him at rest. PAST MEDICAL HISTORY: Coronary artery disease, diabetes, asthma, chronic kidney disease, hypertension, hypothyroidism, and prostate disease. PAST SURGICAL HISTORY: Coronary artery bypass grafting. ALLERGIES: HE HAS NO KNOWN DRUG ALLERGIES. MEDICATIONS: Reviewed and are as per the chart. REVIEW OF SYSTEMS: It is difficult to obtain since the patient has difficulty understanding the questions; however, he states that he is not really having any other problem. His daughter, however, reports that he has been getting increasingly confused and unsteady on his feet in recent weeks. She states that he does not sleep at night and tries to get up and move around without calling the nurse. She states that because of frequent efforts to ambulate unassisted, the [facility] staffs have moved him to closer to the nurses' station and will sometimes bring him out in a reclining chair to the nurses station at night to try to prevent him from getting up and falling; however, this interferes with his sleep, and he seems to become more agitated the less he sleeps. PHYSICAL EXAMINATION: Complete physical examination was performed by me, and with the exception of tenderness over his left hip area, no acute abnormalities were found. He has some bruising of his left arm and a small abrasion on his left knee, but the daughter states that the bruising is chronic, and the patient denies any pain in his knee with palpation or passive range of motion. IMAGING STUDIES: Radiology images were reviewed and I agree with the written report. The patient has a right inferior pubic ramus and right acetabulum fracture, possible lucency of the right sacral ala. ASSESSMENT AND PLAN: Frail elderly man with increasingly frequent falls due to dementia and delirium. He has multiple pelvic fractures. Orthopedics have been consulted and are planning nonoperative management for now. We will manage his medical problems and try to get him on a better sleep regimen. The daughter is currently undecided about the discharge plan, although in general she is happy with the level of care he receives at his [facility]. Job ID: [id number]
[2019-04-11] MEDS: Pioglitazone HCl 45 MG TAB PO SCH (09:44)
[2019-04-11] MEDS: Multivit, Therapeutic 1 TAB PO SCH (09:44)
[2019-04-11] MEDS: Folic Acid 1 MG TAB PO SCH (09:45)
[2019-04-11] MEDS: predniSONE 5 MG TAB PO SCH ×2 (09:45→16:31)
[2019-04-11] MEDS: Finasteride 5 MG TAB PO SCH (09:45)
[2019-04-11] MEDS: Amlodipine 5 MG TAB PO SCH (09:45)
[2019-04-11] MEDS: Aspirin 325 MG TAB PO SCH (09:45)
[2019-04-11] MEDS: Atorvastatin Calcium 20 MG TAB PO SCH (09:45)
[2019-04-11] MEDS: Cyanocobalamin (Vitamin B-12) 1,000 MCG TAB PO SCH (09:45)
[2019-04-11] MEDS: Ezetimibe 10 MG TAB PO SCH (09:45)
[2019-04-11] MEDS: Senokot S 8.6-50 MG TAB PO SCH ×2 (09:45→20:38)
[2019-04-11] MEDS: Famotidine 20 MG TAB PO SCH ×2 (09:46→20:38)
[2019-04-11] MEDS: Magnesium Chloride 64 MG TAB PO SCH ×2 (09:46→20:39)
[2019-04-11] MEDS: Polyethylene Glycol 3350 17 GM Packet PO SCH (09:46)
--- NOTE | 2019-04-11 10:01 | CON ---
DATE OF CONSULTATION: 04/09/2019 HISTORY PRESENT ILLNESS: Mr. Boucher is an 84-year-old male, status post transfer from [facility] for mechanical fall. He is complaining of right hip pain. The patient is conversive, but a poor historian. His pain upon admission was listed as 0 at rest. The patient had a ground level fall. He states he was at home when he fell. The patient is currently living in the [place]. PAST MEDICAL HISTORY: Coronary artery disease, hypertension, hypothyroidism, anemia, diabetes type 2, chronic kidney disease, history of multiple falls, as well as metabolic encephalopathy. PAST SURGICAL HISTORY: Coronary artery bypass, tonsillectomy, previous prostate surgery. ALLERGIES: NO KNOWN DRUG ALLERGIES. MEDICATIONS: 1. Temazepam. 2. Alpha lipoic acid. 3. Norvasc. 4. Seroquel. 5. Flomax. 6. Finasteride. 7. Zetia. 8. Theragen. 9. Prednisone. 10. Actos. 11. Folic acid. 12. Lipitor. 13. Magnesium chloride. 14. Lantus. 15. Metformin. 16. Zytiga. 17. [place] Thyroid. 18. Vitamin B12. 19. Vitamin C. SOCIAL HISTORY: The patient denies drug use, alcohol, or smoking. Currently, lives in the [place] as the daughter is on her way. Other history is through chart alone. PHYSICAL EXAMINATION: VITAL SIGNS: Blood pressure 127/103, pulse 98, respirations 18, temperature 98 degrees, and saturation 96% on room air. GENERAL: No acute distress. Resting in bed. EXTREMITIES: Right lower extremity pain with right medial and lateral compression, anterior and posterior compression. The patient has brisk cap refill. He is able to flex and extend his toes. He has pain with internal and external rotation of the right hip. The patient's knee has no effusion. He has some right soft tissue swelling. IMAGING STUDIES: CT scan of his hip shows high ramus and a nondisplaced inferior ramus fracture with a small cortical disruption noted in zone 1 sacral ala. The high ramus may have a fracture line extends into the anterior column and into the articular surface but nondisplaced. IMPRESSION: 1. High ramus fracture with potential extension of acetabulum. 2. Inferior ramus. 3. Zone 1 sacral ala fracture. ASSESSMENT AND PLAN: The patient will be touchdown weightbearing to his right lower extremity and will be treated conservatively given the patient's current medical status. We will follow up with serial radiographs. We will need to transfer back to the residential. Job ID: [id number]
[2019-04-11] MEDS: Insulin Regular 300 UNITS/3 ML VIAL SC PRN ×3 (12:54→21:18)
--- NOTE | 2019-04-11 15:06 | PRG ---
DATE OF SERVICE: 04/11/2019 HISTORY OF PRESENT ILLNESS: The patient is currently on the surgical floor. Yesterday, he was moved to a room closer to the front [facility] nurses station in order to closely observe him. He reportedly tried to get out of bed last night, did not have any fall, but almost made it out of bed, so for safety reasons, he was moved. Otherwise, the patient is working with the therapist, and he was actually working with them this morning when we rounded on him. There were no other reported issues. PHYSICAL EXAMINATION: VITAL SIGNS: Temperature is 98.2, heart rate 72, blood pressure 152/76, respirations 20, oxygen saturation 93% on room air. GENERAL: The patient is sitting on the side of the bed. He is working with the therapist at this time. His mentation is at baseline. He will answer simple questions and is following simple directions by the therapist. LUNGS: There is equal rise and fall of the chest with no distress. EXTREMITIES: The patient is moving all 4 extremities without difficulty. LABORATORY DATA AND IMAGING: There are no labs or radiographs to review. ASSESSMENT: 1. Status post ground level fall. 2. Right acetabular, right sacral, right ramus fractures, being treated nonoperatively. PLAN: Plan will be to continue supportive care and await placement decision. The patient was evaluated this morning with Dr. Salazar during rounds. Job ID: [id number]
[2019-04-11] MEDS: ALPHA LIPOIC ACID 50 MG PO SCH (16:28)
[2019-04-11] MEDS: Ascorbic Acid 500 mg Chewable Tablet PO SCH (16:28)
[2019-04-11] MEDS: Melatonin 3 MG TAB PO SCH (20:38)
[2019-04-11] MEDS: Tamsulosin HCl 0.4 MG CAP PO SCH (20:38)
[2019-04-11] MEDS: Temazepam 15 MG CAP PO SCH (20:39)
--- NOTE | 2019-04-11 21:59 | PRG ---
DATE OF SERVICE: 04/11/2019 SUBJECTIVE: Mr. Boucher is 84-year-old gentleman, who is status post ground level fall. He sustained right acetabular fracture, nondisplaced right sacral, and right ramus fracture. The patient has been treated conservatively per Orthopedic. The patient has been doing good. He voiced no concern. He developed no fever or shortness of breath. His vital signs are stable. His pain is well controlled. His mental status is consistent with his baseline. Last night, he has almost got out of bed. He is on under restraints. The patient is still not have a bowel movement. His urine is adequate. OBJECTIVE: GENERAL: The patient is lying down in bed, comfortable with no acute distress. VITAL SIGNS: Stable. LUNGS: Clear bilaterally. HEART: Regular rate and rhythm. ABDOMEN: Soft and nondistended. EXTREMITIES: Neurovascularly intact x4. NEUROLOGIC: No focal neurology deficits. ASSESSMENT: 1. Status post ground level fall. 2. Right acetabular, right sacral, right ramus fracture. Conservative treatment. 3. History of hypertension. 4. Benign prostatic hypertrophy. 5. Hypothyroid. 6. Dementia. PLAN: Continue supportive care. Continue pain control. Continue DVT and gastritis prophylaxis. The patient is waiting for caser in, who work on home health and home physical therapy. The patient has planned to go home with his daughter. I was talking with his daughter on the phone earlier this evening, explained his status. His daughter understood and agree with treatment plan. Job ID: [id number]
[2019-04-12] MEDS: Ibuprofen 200 MG TAB PO SCH ×3 (06:16→21:57)
[2019-04-12] MEDS: Acetaminophen 325 MG TAB PO SCH ×4 (06:16→23:47)
[2019-04-12] MEDS: Ezetimibe 10 MG TAB PO SCH (09:11)
[2019-04-12] MEDS: Folic Acid 1 MG TAB PO SCH (09:11)
[2019-04-12] MEDS: Pioglitazone HCl 45 MG TAB PO SCH (09:11)
[2019-04-12] MEDS: Aspirin 325 MG TAB PO SCH (09:11)
[2019-04-12] MEDS: Amlodipine 5 MG TAB PO SCH (09:11)
[2019-04-12] MEDS: Polyethylene Glycol 3350 17 GM Packet PO SCH (09:12)
[2019-04-12] MEDS: Multivit, Therapeutic 1 TAB PO SCH (09:12)
[2019-04-12] MEDS: Ascorbic Acid 500 mg Chewable Tablet PO SCH (09:12)
[2019-04-12] MEDS: Atorvastatin Calcium 20 MG TAB PO SCH (09:12)
[2019-04-12] MEDS: Finasteride 5 MG TAB PO SCH (09:12)
[2019-04-12] MEDS: Senokot S 8.6-50 MG TAB PO SCH ×2 (09:12→20:07)
[2019-04-12] MEDS: Famotidine 20 MG TAB PO SCH ×2 (09:12→20:08)
[2019-04-12] MEDS: Cyanocobalamin (Vitamin B-12) 1,000 MCG TAB PO SCH (09:12)
[2019-04-12] MEDS: predniSONE 5 MG TAB PO SCH ×2 (09:12→17:34)
[2019-04-12] MEDS: Magnesium Chloride 64 MG TAB PO SCH ×2 (09:13→20:08)
--- NOTE | 2019-04-12 11:24 | PRG ---
DATE OF SERVICE: 04/12/2019 84-year-old gentleman, status post ground level fall, sustaining a right acetabular fracture, nondisplaced right sacral fracture, and right ramus fracture. SUBJECTIVE: The patient was eating breakfast this morning and had no complaints. Denied chest pain or shortness of breath. He was eating breakfast without difficulty. No nausea or vomiting. Per nursing and per his chart, he has had one bowel movement and plenty of wet diapers. OBJECTIVE: VITAL SIGNS: Temperature 97.6, heart rate 75, blood pressure 172/74, respirations 18, and 93% saturation on room air. GENERAL: Well-appearing, enjoying his breakfast. CARDIAC: Regular rate and rhythm. No murmurs. RESPIRATORY: Lungs are clear to auscultation bilaterally. No respiratory distress. ABDOMEN: Soft, nontender. Bowel sounds are active. LABORATORY DATA: No new labs to review this morning. ASSESSMENT: 1. Right acetabular, right sacral, right ramus fracture. 2. History of hypertension. 3. Benign prostatic hypertrophy. 4. Hypothyroidism. 5. Dementia. PLAN: We are continuing conservative care for his fractures per Ortho. We will continue his pain control, DVT prophylaxis, and GI prophylaxis. The patient is awaiting placement and likely may go today. Case Management was working on home health, so that he can go with his daughter. He is taking amlodipine for his blood pressure. This patient was seen, examined, and discussed with Dr. Salazar, the attending physician, who agrees with the assessment and plan. Barbara High MD PGY1 Job ID: [id number] [facility]
[2019-04-12] MEDS: Insulin Regular 300 UNITS/3 ML VIAL SC PRN ×3 (12:23→21:39)
[2019-04-12] MEDS: Tamsulosin HCl 0.4 MG CAP PO SCH (20:07)
[2019-04-12] MEDS: Melatonin 3 MG TAB PO SCH (20:07)
[2019-04-12] MEDS: Temazepam 15 MG CAP PO SCH (20:08)
--- NOTE | 2019-04-12 22:22 | PRG ---
DATE OF SERVICE: 04/12/2019 The patient is day 3 status post mechanical fall with pelvic fractures. He is receiving non-operative management and has been working with Physical and Occupational Therapy. He will likely be able to be discharged home with home health. He was seen during the evening rounds and he was resting comfortably and asleep at the time of my evaluation. Nursing reported no acute events. He is afebrile and hemodynamically stable with oxygen saturation at 96% on room air. The patient is pending discharge home with home health with his daughter. Seroquel was started today. The patient had issues with acute agitation overnight, last night. We will continue to monitor and adjust medications as needed. Job ID: [id number]
[2019-04-13] MEDS: Acetaminophen 325 MG TAB PO SCH ×3 (05:25→17:03)
[2019-04-13] MEDS: Ibuprofen 200 MG TAB PO SCH ×3 (05:25→20:55)
[2019-04-13] MEDS: Ascorbic Acid 500 mg Chewable Tablet PO SCH (09:08)
[2019-04-13] MEDS: Magnesium Chloride 64 MG TAB PO SCH ×2 (09:08→20:40)
[2019-04-13] MEDS: Amlodipine 5 MG TAB PO SCH (09:08)
[2019-04-13] MEDS: Ezetimibe 10 MG TAB PO SCH (09:09)
[2019-04-13] MEDS: predniSONE 5 MG TAB PO SCH ×2 (09:09→17:02)
[2019-04-13] MEDS: Pioglitazone HCl 45 MG TAB PO SCH (09:09)
[2019-04-13] MEDS: Folic Acid 1 MG TAB PO SCH (09:09)
[2019-04-13] MEDS: Multivit, Therapeutic 1 TAB PO SCH (09:09)
[2019-04-13] MEDS: Famotidine 20 MG TAB PO SCH ×2 (09:10→20:40)
[2019-04-13] MEDS: Atorvastatin Calcium 20 MG TAB PO SCH (09:10)
[2019-04-13] MEDS: Polyethylene Glycol 3350 17 GM Packet PO SCH (09:10)
[2019-04-13] MEDS: Cyanocobalamin (Vitamin B-12) 1,000 MCG TAB PO SCH (09:10)
[2019-04-13] MEDS: Finasteride 5 MG TAB PO SCH (09:10)
[2019-04-13] MEDS: Senokot S 8.6-50 MG TAB PO SCH ×2 (09:10→20:40)
[2019-04-13] MEDS: Aspirin 325 MG TAB PO SCH (09:10)
[2019-04-13] MEDS: Insulin Regular 300 UNITS/3 ML VIAL SC PRN ×3 (12:49→20:38)
--- NOTE | 2019-04-13 16:17 | PRG ---
DATE OF SERVICE: 04/13/2019 SUBJECTIVE: This is an 84-year-old gentleman, status post ground level fall sustaining a right acetabular fracture, a nondisplaced right sacral fracture, and also a right pubic rami fracture. The patient's fractures are nonoperative. The patient remains on the surgical floor. The patient is awake and alert, in no distress. The patient states that he did eat breakfast. The patient voices no complaints at this time. OBJECTIVE: VITAL SIGNS: Blood pressure 175/87, temperature 98.0, respirations 18, SpO2 of 96% on room air. GENERAL: The patient is awake and alert, lying in the hospital bed, in no distress. CARDIAC: Regular rate. Regular rhythm. RESPIRATORY: Equal chest rise and fall. No respiratory distress. ABDOMEN: Soft, nontender, and nondistended. EXTREMITIES: Moves all extremities. Neurovascularly intact. ASSESSMENT: 1. Status post ground level fall. 2. Right acetabular, right sacral, right pubic rami fractures, nonoperative. 3. History of hypertension. 4. Benign prostatic hypertrophy. 5. Hypothyroidism. 6. Dementia. PLAN: Continue supportive care. Continue pain control and DVT prophylaxis. The patient's daughter has now decided that instead of going home with home health as the patient has been max assist, she now wishes for the patient to go to a [facility] facility. Case Management is working on placement at this time. We will continue to monitor the patient's blood pressure and increase if needed. Continue physical and occupational therapy. The patient was examined with Dr. Salazar during morning rounds. Job ID: [id number]
[2019-04-13] MEDS: Melatonin 3 MG TAB PO SCH (20:39)
[2019-04-13] MEDS: Temazepam 15 MG CAP PO SCH (20:40)
[2019-04-13] MEDS: Tamsulosin HCl 0.4 MG CAP PO SCH (20:40)
--- NOTE | 2019-04-14 01:12 | PRG ---
DATE OF SERVICE: 04/13/2019 The patient was seen today during evening rounds. He was resting comfortably and asleep with no signs of acute respiratory distress. He is afebrile and hemodynamically stable, saturating 97% on room air. Blood pressure has been elevated throughout the day with readings in the 150s to 170s. He is currently on all of his home medications. The patient's family initially wanted to take him home, but changed their mind today and requested placement at a detention facility. We will continue his current diet and pain regimen, as well as his current home medications. We will discuss with the Trauma team about further management of his hypertension. Job ID: [id number]
[2019-04-14] MEDS: Acetaminophen 325 MG TAB PO SCH ×5 (01:49→23:16)
[2019-04-14] MEDS: Ibuprofen 200 MG TAB PO SCH ×3 (05:41→20:54)
[2019-04-14] MEDS: Aspirin 325 MG TAB PO SCH (08:16)
[2019-04-14] MEDS: Polyethylene Glycol 3350 17 GM Packet PO SCH (08:16)
[2019-04-14] MEDS: Folic Acid 1 MG TAB PO SCH (08:16)
[2019-04-14] MEDS: Magnesium Chloride 64 MG TAB PO SCH ×2 (08:16→20:45)
[2019-04-14] MEDS: Senokot S 8.6-50 MG TAB PO SCH ×2 (08:17→20:43)
[2019-04-14] MEDS: Ascorbic Acid 500 mg Chewable Tablet PO SCH (08:17)
[2019-04-14] MEDS: Atorvastatin Calcium 20 MG TAB PO SCH (08:17)
[2019-04-14] MEDS: predniSONE 5 MG TAB PO SCH ×2 (08:17→16:06)
[2019-04-14] MEDS: Multivit, Therapeutic 1 TAB PO SCH (08:17)
[2019-04-14] MEDS: Ezetimibe 10 MG TAB PO SCH (08:17)
[2019-04-14] MEDS: Cyanocobalamin (Vitamin B-12) 1,000 MCG TAB PO SCH (08:17)
[2019-04-14] MEDS: Finasteride 5 MG TAB PO SCH (08:17)
[2019-04-14] MEDS: Pioglitazone HCl 45 MG TAB PO SCH (08:17)
[2019-04-14] MEDS: Famotidine 20 MG TAB PO SCH ×2 (08:17→20:45)
[2019-04-14] MEDS: Amlodipine 5 MG TAB PO SCH (08:19)
[2019-04-14] MEDS: ABIRATERONE ACETATE 500 MG PO SCH ×2 (09:58→09:59)
[2019-04-14] MEDS: Insulin Regular 300 UNITS/3 ML VIAL SC PRN ×3 (11:15→20:53)
[2019-04-14] MEDS: Tamsulosin HCl 0.4 MG CAP PO SCH (20:43)
[2019-04-14] MEDS: Temazepam 15 MG CAP PO SCH (20:43)
[2019-04-14] MEDS: Melatonin 3 MG TAB PO SCH (20:43)
--- NOTE | 2019-04-14 21:06 | PRG ---
DATE OF SERVICE: 04/14/2019 An 84-year-old male, status post ground level fall, right acetabular fracture, nondisplaced right sacral fracture, right pubic rami fracture, hospital day #5. SUBJECTIVE: Mr. Boucher is doing well this morning. He was preparing to eat lunch. His pain is well controlled. He is awaiting placement at a custodial facility. He is tolerating p.o. OBJECTIVE: VITAL SIGNS: Temperature 98.1, pulse 83, blood pressure 133/82, respirations 20 , and 99% on room air. GENERAL: Well-appearing, upbeat man. RESPIRATORY: No respiratory distress. Nonlabored breathing. CARDIAC: Regular rate and rhythm. No murmurs. ABDOMEN: Nondistended. EXTREMITIES: Well perfused. LABORATORY DATA: [id number]-[id number] glucose ranged from 140 to 240s over past 24 hours. No other new labs to review. ASSESSMENT: 1. Status post ground level fall. 2. Right acetabular, right sacral, right pubic rami fractures, nonoperative management. 3. History of hypertension, benign prostatic hypertrophy, hypothyroidism, and dementia. PLAN: Continue supportive care and pain control along with DVT prophylaxis. Await placement at custodial facility. Pending Case Management. The patient's blood pressure medicine was increased in order to control his blood pressures. The patient was seen, discussed, and examined with Dr. Salazar, the attending physician, who agrees with the assessment and plan. Barbara High MD PGY1 Job ID: [id number] [facility]
--- NOTE | 2019-04-15 01:03 | PRG ---
DATE OF SERVICE: 04/14/2019 The patient was seen this evening during rounds. At that time, he was resting comfortably and asleep in bed with no signs of acute respiratory distress. He had no acute events throughout the day today. At the time of my evaluation, he is hemodynamically stable and afebrile. He is saturating 92% on room air. The patient's home medication of amlodipine was increased today to help treat hypertension. It appears to have improved his blood pressure throughout the day. He no longer has systolic blood pressures in the 170s, now he is 150s to 160s. We will continue to titrate his home antihypertensive medications. He is pending placement at a [facility] facility. He is ready for discharge at this time. Job ID: [id number]
[2019-04-15] MEDS: Ibuprofen 200 MG TAB PO SCH ×3 (05:22→21:21)
[2019-04-15] MEDS: Acetaminophen 325 MG TAB PO SCH ×4 (05:22→22:23)
[2019-04-15] MEDS: Ascorbic Acid 500 mg Chewable Tablet PO SCH (08:50)
[2019-04-15] MEDS: Polyethylene Glycol 3350 17 GM Packet PO SCH (08:50)
[2019-04-15] MEDS: predniSONE 5 MG TAB PO SCH ×2 (08:50→16:36)
[2019-04-15] MEDS: Ezetimibe 10 MG TAB PO SCH (08:51)
[2019-04-15] MEDS: Cyanocobalamin (Vitamin B-12) 1,000 MCG TAB PO SCH (08:51)
[2019-04-15] MEDS: Atorvastatin Calcium 20 MG TAB PO SCH (08:51)
[2019-04-15] MEDS: Pioglitazone HCl 45 MG TAB PO SCH (08:51)
[2019-04-15] MEDS: Aspirin 325 MG TAB PO SCH (08:51)
[2019-04-15] MEDS: Famotidine 20 MG TAB PO SCH ×2 (08:51→21:22)
[2019-04-15] MEDS: Senokot S 8.6-50 MG TAB PO SCH ×2 (08:51→21:22)
[2019-04-15] MEDS: Folic Acid 1 MG TAB PO SCH (08:52)
[2019-04-15] MEDS: Amlodipine 5 MG TAB PO SCH (08:52)
[2019-04-15] MEDS: Finasteride 5 MG TAB PO SCH (08:52)
[2019-04-15] MEDS: Multivit, Therapeutic 1 TAB PO SCH (08:52)
[2019-04-15] MEDS: Magnesium Chloride 64 MG TAB PO SCH ×2 (08:53→21:21)
[2019-04-15] MEDS: Insulin Regular 300 UNITS/3 ML VIAL SC PRN ×3 (11:22→21:30)
[2019-04-15] MEDS: ABIRATERONE ACETATE 500 MG PO SCH (16:08)
--- NOTE | 2019-04-15 18:46 | PRG ---
DATE OF SERVICE: 04/15/2019 SUBJECTIVE: This is an 84-year-old male, status post ground-level fall, right acetabular fracture, nondisplaced right sacral fracture, right pubic rami fracture. The patient is hospital day #6. The patient's injuries are nonoperative. The patient is awake, alert, sitting up in bed, eating his breakfast this morning. The patient's pain is well controlled. The patient voices no complaints at this time. The patient is pending placement to [facility] facility. The patient has not been able to ambulate with physical therapy. He has only been able to sit at the edge of the bed and stand briefly. OBJECTIVE: VITAL SIGNS: Blood pressure 141/77, temperature 97.6, pulse 68, respirations 14, SpO2 of 96% on room air. GENERAL: Well appearing, sitting up in bed, in no acute distress. RESPIRATORY: Equal chest rise and fall. No respiratory distress. CARDIAC: Regular rate and regular rhythm. EXTREMITIES: Moves all extremities, well perfused. LABORATORY DATA: There are no labs to evaluate today. IMPRESSION: 1. Status post ground-level fall. 2. Right acetabular, right sacral, and right pubic rami fractures, nonoperative management. 3. History of hypertension, benign prostate hypertrophy, hypothyroidism, and dementia. PLAN: Continue supportive care and DVT prophylaxis. Awaiting placement and insurance approval at [facility] facility. The patient was examined by Dr. Salazar during morning rounds. Job ID: [id number]
[2019-04-15] MEDS: Tamsulosin HCl 0.4 MG CAP PO SCH (21:20)
[2019-04-15] MEDS: Melatonin 3 MG TAB PO SCH (21:21)
[2019-04-15] MEDS: Temazepam 15 MG CAP PO SCH (21:22)
--- NOTE | 2019-04-16 00:09 | PRG ---
DATE OF SERVICE: 04/15/2019 The patient was seen today during the evening rounds. He was lying in bed comfortably and asleep. Upon evaluation of his vitals, the patient is afebrile and hemodynamically stable. He is saturating 96% on room air. The patient is pending [facility] to a prison facility. He was approved and will be discharged tomorrow. We will continue his current pain regimen and diet. Job ID: [id number]
[2019-04-16] MEDS: Ibuprofen 200 MG TAB PO SCH (05:26)
[2019-04-16] MEDS: Acetaminophen 325 MG TAB PO SCH ×2 (05:26→11:24)
[2019-04-16] MEDS: Magnesium Chloride 64 MG TAB PO SCH (07:48)
[2019-04-16] MEDS: Polyethylene Glycol 3350 17 GM Packet PO SCH (07:49)
[2019-04-16] MEDS: Amlodipine 5 MG TAB PO SCH (07:50)
[2019-04-16] MEDS: Finasteride 5 MG TAB PO SCH (07:50)
[2019-04-16] MEDS: Cyanocobalamin (Vitamin B-12) 1,000 MCG TAB PO SCH (07:50)
[2019-04-16] MEDS: Pioglitazone HCl 45 MG TAB PO SCH (07:50)
[2019-04-16] MEDS: Aspirin 325 MG TAB PO SCH (07:50)
[2019-04-16] MEDS: Folic Acid 1 MG TAB PO SCH (07:51)
[2019-04-16] MEDS: Ezetimibe 10 MG TAB PO SCH (07:51)
[2019-04-16] MEDS: Senokot S 8.6-50 MG TAB PO SCH (07:51)
[2019-04-16] MEDS: Ascorbic Acid 500 mg Chewable Tablet PO SCH (07:51)
[2019-04-16] MEDS: Atorvastatin Calcium 20 MG TAB PO SCH (07:51)
[2019-04-16] MEDS: predniSONE 5 MG TAB PO SCH (07:51)
[2019-04-16] MEDS: Famotidine 20 MG TAB PO SCH (07:51)
[2019-04-16] MEDS: Multivit, Therapeutic 1 TAB PO SCH (07:51)
[2019-04-16 10:53] VITALS: BP 151/78; TEMP 98.1
[2019-04-16] MEDS: Insulin Regular 300 UNITS/3 ML VIAL SC PRN (11:23)
--- NOTE | 2019-04-18 05:50 | DIS ---
DATE OF ADMISSION: 04/09/2019 DATE OF DISCHARGE: 04/16/2019 This is Hilary Gregory NP dictating a report for Wilmer Salazar DO. DISCHARGE ATTENDING: Wilmer Salazar DO CONSULTS: Orthopedic Surgery. PROCEDURES: 1. On 04/09/2019, brain CT; impression, no acute intracranial abnormality. 2. Pelvis CT; impression, fractures of the right hemipelvis involving the inferior right pubic rami, right acetabulum, right sacral ala fracture. 3. Cervical spine CT; impression, no acute fracture of the cervical spine. 4. Chest x-ray, atherosclerosis. PRIMARY DIAGNOSES: Status post unwitnessed ground level fall, right acetabular, right sacral and right pubic rami fracture. SECONDARY DIAGNOSES: History of coronary artery bypass grafting, three vessels, diabetes with insulin dependence, chronic kidney disease, hypertension, hypothyroidism, prostate cancer. DISCHARGE MEDICATIONS: 1. Zytiga 500 mg p.o. daily. 2. Acetaminophen 650 mg q.6 hours. 3. Alpha-lipoic acid. 4. Norvasc 5 mg tablet daily. 5. Vitamin C 500 mg p.o. daily. 6. Aspirin 325 mg p.o. daily. 7. Lipitor 20 mg daily. 8. Calcium with vitamin D 1200 mg p.o. daily. 9. Vitamin B12 1000 mcg p.o. daily. 10. Zetia 10 mg p.o. daily. 11. Finasteride 5 mg p.o. daily. 12. Folic acid 1 mg p.o. daily. 13. Insulin glargine 10 units subcu daily. 14. Magnesium 64 mg p.o. daily. 15. Melatonin 3 mg p.o. at bedtime. 16. Metformin 500 mg p.o. b.i.d. 17. Multivitamin one tablet daily. 18. Actos 45 mg p.o. daily. 19. Prednisone 5 mg p.o. b.i.d. 20. Seroquel 50 mg p.o. at bedtime. 21. Fosamax 0.8 mg p.o. at bedtime. 22. Temazepam 15 mg p.o. at bedtime. 23. [place] Thyroid 90 mg p.o. daily. HISTORY OF PRESENT ILLNESS AND HOSPITAL COURSE: This is an 84-year-old gentleman, who presented to the emergency room for evaluation after a fall in the [facility]. It was reported that the patient was standing and he lost his balance and fell. There was no loss of consciousness. The patient reported left hip pain. The patient was evaluated and found to have a right acetabular, right sacral, right ramus fractures, which were nonoperative according to Orthopedic Surgery. The patient's pain was controlled during his hospital stay. The patient was toe- touch weightbearing to the left lower extremity. The patient worked with physical therapy. He did have some episodes of agitation overnight. There was an extended length in hospital stay due to family deciding that the patient was going to go to inpatient rehab versus a assisted facility. The patient was finally accepted to [facility] for continued care. On the day of discharge, the patient had stable vital signs. The patient's exam was unremarkable including cardiopulmonary and GI exam. The patient was deemed stable for discharge to assisted facility for continued physical and occupational therapy. DISPOSITION: Stable. DISCHARGE INSTRUCTIONS: 1. Location: [facility]. 2. Diet: Diabetic diet. 3. Orthopedic limitations: Toe-touch weightbearing to the left lower extremity. The patient to use a walker. 4. Followup: Follow up in 6 weeks with x-rays with Orthopedic Surgery. This is just a summary of the hospital course. Job ID: [id number] MTDD
== END 2019-04-16 12:50 ==
LOC: ERS 05:28 → SURG A 09:18
PROVIDERS: ADMIT Surgery; ATTEND Surgery
DX: S32.401A Unspecified fracture of right acetabulum, initial encounter for closed fracture (principal); S32.119A Unspecified Zone I fracture of sacrum, initial encounter for closed fracture; S32.591A Other specified fracture of right pubis, initial encounter for closed fracture; I25.10 Atherosclerotic heart disease of native coronary artery without angina pectoris; I12.9 Hypertensive chronic kidney disease with stage 1 through stage 4 chronic kidney disease, or unspecified chronic kidney disease; E11.22 Type 2 diabetes mellitus with diabetic chronic kidney disease; N18.9 Chronic kidney disease, unspecified; J45.909 Unspecified asthma, uncomplicated; E03.9 Hypothyroidism, unspecified; F03.90 Unspecified dementia, unspecified severity, without behavioral disturbance, psychotic disturbance, mood disturbance, and anxiety; N40.0 Benign prostatic hyperplasia without lower urinary tract symptoms; M43.12 Spondylolisthesis, cervical region; M43.13 Spondylolisthesis, cervicothoracic region; S40.022A Contusion of left upper arm, initial encounter; S80.212A Abrasion, left knee, initial encounter; Z79.4 Long term (current) use of insulin; Z79.52 Long term (current) use of systemic steroids; Z79.82 Long term (current) use of aspirin; Z79.899 Other long term (current) drug therapy; Z95.1 Presence of aortocoronary bypass graft; W18.30XA Fall on same level, unspecified, initial encounter
CPT/HCPCS: 70450; 71045; 72125; 72192; 73552; 74177; 80048; 80053; 82962 ×8; 83735; 84100; 85025 ×2; 85610; 85730; 86850; 86900; 86901; 93005; 96360; 96361; 97110 ×4; 97139 ×7; 97530 ×6; 99285; G0378 ×9; 36415; 36416; G0390; J0360; J1815; J1885; J7512; Q9967